=== PATIENT | male | born 1940 | race African-American/Black ===

== ENCOUNTER 2016-06-15 10:48 | Emergency (ER) | payer MEDICARE, MEDICAID ==
--- NOTE | 2016-06-15 10:53 | ER Document Report ---
Addendum entered and electronically signed by OSCAR PIERRE NP 06/15/16 11:14 : Course - Re-evaluation Re-evalutation: 06/15/16 11:14 I have consulted with the supervisory physician per [facility] Guidelines. I have greeted and performed a rapid initial assessment of this patient. A comprehensive ED assessment, evaluation of the patient, analysis of test results , and completion of the medical decision making process will be contacted by additional ED providers. - Vital Signs Vital signs: Temp Pulse Resp BP Pulse Ox 98.1 F 94 20 143/70 H 98 06/15/16 11:06 06/15/16 11:06 06/15/16 11:06 06/15/16 11:06 06/15/16 11:06 Original Note: ED Medical Screen (RME) - General Stated Complaint: BREATHING CONCERNS Time seen by provider: 11:09 Mode of Arrival: Ambulatory Information source: Patient Notes: 75-year-old diabetic, hypertensive ex smoker male with a history of coronary artery disease and stents has been nauseated for 3 days. After he vomited once this morning he developed epigastric to neck burning and hurting. Swallowing makes it worse. Bad diarrhea for. Took 1 baby aspirin this morning. He feels short winded. TRAVEL OUTSIDE OF THE [place] IN LAST 30 DAYS: No - Related Data Allergies/Adverse Reactions: No Known Allergies Allergy (Verified 06/15/16 11:11) Past Medical History - Past Medical History Cardiac Medical History: Reports: Hx Coronary Artery Disease - STENT PLACED, Hx Hypertension Denies: Hx Heart Attack Pulmonary Medical History: Denies: Hx Asthma, Hx Bronchitis, Hx Pneumonia Neurological Medical History: Reports: Hx Seizures - ALCOHOL INDUCED 40 YEARS AGO . Denies: Hx Cerebrovascular Accident GI Medical History: Reports: Hx Hiatal Hernia. Denies: Hx Hepatitis, Hx Ulcer Musculoskeltal Medical History: Reports Hx Arthritis - NECK Infectious Medical History: Denies: Hx Hepatitis Past Surgical History: Denies: Hx Open Heart Surgery, Hx Pacemaker - Immunizations Hx Diphtheria, Pertussis, Tetanus Vaccination: No Physical Exam - Vital signs Vitals: Temp Pulse Resp BP Pulse Ox 98.1 F 94 20 143/70 H 98 06/15/16 11:06 06/15/16 11:06 06/15/16 11:06 06/15/16 11:06 06/15/16 11:06 Course - Vital Signs Vital signs: Temp Pulse Resp BP Pulse Ox 98.1 F 94 20 143/70 H 98 06/15/16 11:06 06/15/16 11:06 06/15/16 11:06 06/15/16 11:06 06/15/16 11:06
[2016-06-15] MEDS ORDERED: ASPIRIN 81 MG TABLET, CHEWABLE PO ONE (11:12)
[2016-06-15] MEDS ORDERED: ONDANSETRON 4 MG TAB.RAPDIS PO ONE (11:14)
[2016-06-15 11:58] LABS: ABSOLUTE EOSINOPHILS # (AUTO) 0.5 10^3/uL (0.0-0.6); ABSOLUTE LYMPHOCYTES (AUTO) 0.8 10^3/uL (0.5-4.7); ABSOLUTE MONOCYTES (AUTO) 1.1 10^3/uL (0.1-1.4); ABSOLUTE NEUT (AUTO) 6.8 10^3/uL (1.7-8.2); BASOPHILS % (AUTO) 0.5 % (0-2); EOSINOPHILS % (AUTO) 5.1 % (0-6); HEMATOCRIT 39.9 % (37.9-51.0); HEMOGLOBIN 13.3 g/dL (13.5-17.0); LYMPHOCYTES % (AUTO) 8.3 % (13-45); MEAN CORPUSCULAR HGB CONC 33.2 g/dL (32.0-36.0); MEAN CORPUSCULAR VOLUME 90 fl (80-97); MONOCYTES % (AUTO) 11.9 % (3-13); RED BLOOD COUNT 4.43 10^6/uL (4.35-5.55); RED CELL DISTRIBUTION WIDTH 14.3 % (11.5-14.0); SEGMENTED NEUTROPHILS % (AUTO) 74.2 % (42-78); WHITE BLOOD COUNT 9.2 10^3/uL (4.0-10.5)
[2016-06-15 12:07] LABS: ALANINE AMINOTRANSFERASE 32 U/L (21-72); ALBUMIN 3.6 g/dL (3.5-5.0); ALKALINE PHOSPHATASE 59 U/L (38-126); ANION GAP 15 (5-19); ASPARTATE AMINO TRANSFERASE 16 U/L (17-59); BILIRUBIN,TOTAL 0.7 mg/dL (0.2-1.3); BLOOD UREA NITROGEN 14 mg/dL (7-20); CALCIUM 8.6 mg/dL (8.4-10.2); CARBON DIOXIDE 21 mmol/L (22-30); CHLORIDE 103 mmol/L (98-107); CREATINE KINASE 57 U/L (55-170); CREATININE RESULT 0.93 mg/dL (0.52-1.25); GLUCOSE 286 mg/dL (75-110); POTASSIUM 4.2 mmol/L (3.6-5.0); SODIUM 139.1 mmol/L (137-145); TOTAL PROTEIN 6.6 g/dL (6.3-8.2)
[2016-06-15 12:19] LABS: TROPONIN I < 0.012 ng/mL
[2016-06-15] MEDS ORDERED: LIDOCAINE 2% VISCOUS SOLN 20 ML UDCUP PO ONE (13:23)
[2016-06-15] MEDS ORDERED: MAG HYDROX/AL HYDROX/SIMETH SUSP 30 ML UDCUP PO ONE (13:23)
--- NOTE | 2016-06-15 13:30 | ER Document Report ---
ED GI/ - General Mode of Arrival: Ambulatory Information source: Patient TRAVEL OUTSIDE OF THE [place] IN LAST 30 DAYS: No - HPI Patient complains to provider of: Abdominal pain, Diarrhea Onset: This morning Timing/Duration: Sudden Quality of pain: Burning Location: Epigastric, Other - see above Associated symptoms: Other - see above <MEREDITH ST - Last Filed: 06/15/16 13:21> <GALO TANG - Last Filed: 06/15/16 16:15> <GHULAM LEAL - Last Filed: 06/15/16 19:11> - General Chief Complaint: Epigastric Pain Stated Complaint: BREATHING CONCERNS Notes: 75 year old male with history of a hiatal hernia and esophageal obstructions presents to the ED complaining of burning epigastric abdominal pain that radiates substernally which started this morning when he woke up. Patient states that he can reproduce the burning sensation when he swallows. Patient is additionally complaining of diarrhea, nausea, and belching for the past 3 days. Patient states on one occasion that he belched up sour tasting material. The patient receives primary care from [facility]. (MEREDITH ST) This 75-year-old male patient comes emergency room complaining of epigastric burning pain going up in the retrosternal region. He states he began belching quite a lot yesterday, and at some point belched up better tasting liquid. He reports his abdomen has been a little distended. He also reports he has had nausea and diarrhea for 3 days. He states there is no chest discomfort at this time unless he swallows. His past history is significant for coronary artery disease with a stent placed , taking Plavix. He is also on several nitrates. He has GERD and a hiatal hernia. He has type II diabetes taking metformin. He has hypertension and hyperlipidemia. He reports a seizure episode 40 years ago that was alcohol related. He has peripheral vascular disease, he has intermittent claudication and takes Cilostazol. He quit smoking 40 years ago but does chew tobacco. He does not drink alcohol now. On exam his abdomen is hyperresonant and appears distended. It is soft and not tender to palpate. He was given a GI cocktail drink, and reports it made the discomfort in swallowing better. Abdominal films show multiple air-fluid levels and large amount of gas in the intestines. An oral and IV contrast CT scan will be done to rule out obstruction. His EKG did not show any Q-tips changes, his CK is low and troponin is undetectable. His liver function tests are normal. His sugar is 286, otherwise the Chem-12 and CBC are normal. (GALO TANG) - Related Data Allergies/Adverse Reactions: No Known Allergies Allergy (Verified 06/15/16 11:11) Past Medical History - General Information source: Patient - Social History Smoking Status: Former Smoker Chew tobacco use (# tins/day): Yes Frequency of alcohol use: None Family History: Reviewed & Not Pertinent Patient has suicidal ideation: No Patient has homicidal ideation: No - Past Medical History Cardiac Medical History: Reports: Hx Coronary Artery Disease - STENT PLACED, Hx Hypercholesterolemia, Hx Hypertension, Hx Peripheral Vascular Disease Pulmonary Medical History: Denies: Hx Asthma, Hx Bronchitis, Hx Pneumonia Neurological Medical History: Reports: Hx Seizures - ALCOHOL INDUCED 40 YEARS AGO . Denies: Hx Cerebrovascular Accident Endocrine Medical History: Reports: Hx Diabetes Mellitus Type 2 Renal/ Medical History: Denies: Hx Peritoneal Dialysis GI Medical History: Reports: Hx Hiatal Hernia, Other - esophageal obstructions Musculoskeltal Medical History: Reports Hx Arthritis - NECK Past Surgical History: Reports: Hx Cardiac Surgery - stents x3 - Immunizations Hx Diphtheria, Pertussis, Tetanus Vaccination: No <MEREDITH ST - Last Filed: 06/15/16 13:21> Review of Systems - Review of Systems Constitutional: No symptoms reported EENT: No symptoms reported Cardiovascular: No symptoms reported Respiratory: No symptoms reported Gastrointestinal: See HPI, Abdominal pain - epigastric which radiates substernally, Diarrhea, Nausea, Other - belching Genitourinary: No symptoms reported Male Genitourinary: No symptoms reported Musculoskeletal: No symptoms reported Skin: No symptoms reported Hematologic/Lymphatic: No symptoms reported Neurological/Psychological: No symptoms reported <MEREDITH ST - Last Filed: 06/15/16 13:21> Physical Exam - Vital signs Interpretation: Normal - General General appearance: Alert In distress: None - HEENT Head: Normocephalic, Atraumatic Eyes: Normal Extraocular movements intact: Yes Pupils: PERRL - Respiratory Respiratory status: No respiratory distress Breath sounds: Normal - Cardiovascular Rhythm: Regular Heart sounds: Normal auscultation - Abdominal Inspection: No: Normal Distension: Distended - hyper-resonate - Back Back: Normal - Extremities General upper extremity: Normal inspection, Normal ROM General lower extremity: Normal inspection, Normal ROM - Neurological Neuro grossly intact: Yes - Psychological Associated symptoms: Normal affect, Normal mood - Skin Skin Temperature: Warm Skin Moisture: Dry Skin Color: Normal <MEREDITH ST - Last Filed: 06/15/16 13:21> <GALO TANG - Last Filed: 06/15/16 16:15> <GHULAM LEAL - Last Filed: 06/15/16 19:11> - Vital signs Vitals: Temp Pulse Resp BP Pulse Ox 98.1 F 94 20 143/70 H 98 06/15/16 11:06 06/15/16 11:06 06/15/16 11:06 06/15/16 11:06 06/15/16 11:06 (MEREDITH ST) (GALO TANG) (GHULAM LEAL) Course - Laboratory Result Diagrams: 06/15/16 11:46 06/15/16 11:46 <[address] - Last Filed: 06/15/16 13:21> - Laboratory Result Diagrams: 06/15/16 11:46 06/15/16 11:46 - Diagnostic Test Radiology reviewed: Image reviewed, Reports reviewed - Chest x-ray is unremarkable, flat and upright abdomen shows multiple air-fluid levels and a lot of gas. - Transfer of Care Care transferred to following provider: Dr. Leal <GALO TANG - Last Filed: 06/15/16 16:15> - Laboratory Result Diagrams: 06/15/16 11:46 06/15/16 11:46 <GHULAM LEAL - Last Filed: 06/15/16 19:11> - Re-evaluation Re-evalutation: 06/15/16 18:58 Progress: This patient was signed out to me at 5:[address] Larsen pending CT of the abdomen and pelvis. The patient reportedly has been having a lot of epigastric burning sensation with reflux and sour taste in the back of his mouth. His workup to that point had been unremarkable. The CT does not reveal any acute abnormalities. He does have cholelithiasis. There are normal LFTs and lipase. Patient has no abdominal tenderness. Vital Signs are stable. Based on Dr. King discussion, the patient was to be discharged home with follow-up with his PCP if the CT was negative. Patient does describe a burning sore throat feeling. I will give him some Magic mouthwash. He is following up with his primary doctor. I have discussed all of this with the patient and he is agreeable with the plan. (GHULAM LEAL) - Vital Signs Vital signs: Temp Pulse Resp BP Pulse Ox 98.1 F 94 13 101/75 100 06/15/16 11:06 06/15/16 11:06 06/15/16 17:15 06/15/16 16:31 06/15/16 16:31 (MERED[address]) (GALO TANG) (GHULAM LEAL) - Laboratory Laboratory results interpreted by me: 06/15/16 06/15/16 06/15/16 11:46 11:46 11:46 Hgb 13.3 L RDW 14.3 H Lymphocytes % 8.3 L Carbon Dioxide 21 L Glucose 286 H Hemoglobin A1c % 7.0 H AST 16 L (MEREDITH ST) (GALO TANG) (GHULAM LEAL) - Transfer of Care Notes: 06/15/16 16:17 Will follow up on the CT scan and make a disposition. (GALO TANG) Discharge <MEREDITH ST - Last Filed: 06/15/16 13:21> <GALO TANG - Last Filed: 06/15/16 16:15> <GHULAM LEAL - Last Filed: 06/15/16 19:11> - Discharge Clinical Impression: Reflux esophagitis Condition: Stable Disposition: HOME, SELF-CARE Instructions: Acid-Suppressing Medication ([facility]), Esophagitis ([facility]) Additional Instructions: Take medications as prescribed. Monitor your glucose carefully. Follow-up the primary doctor on Friday. Return to emergency department for fevers, chest pain , difficulty breathing, vomiting so not to keep down fluids, or any other worsening or concerning symptoms. Prescriptions: Famotidine [Pepcid 20 mg Tablet] 20 mg PO BID #28 tablet Nystatin/Dexameth/Diphen [Magic Mouthwash ([facility] Formula) Susp] 5 ml PO QID #120 ml Scribe Documentation - Scribe Written by Scribe:: Jade Mccray, 06/15/2016 13:33 acting as scribe for :: Sae <MEREDITH ST - Last Filed: 06/15/16 13:21>
[2016-06-15] MEDS ORDERED: NORMAL SALINE 1000 ML 1,000 ML IV ONE (14:44)
[2016-06-15] MEDS ORDERED: ONDANSETRON HCL INJ/PF 4 MG/2 ML SDV IV ONE (15:11)
--- NOTE | 2016-06-15 15:18 | EKG REPORT ---
SEVERITY:- ABNORMAL ECG - SINUS RHYTHM LEFT ATRIAL ABNORMALITY LEFT ANTERIOR FASCICULAR BLOCK LEFT VENTRICULAR HYPERTROPHY : Confirmed by: Sita Martino MD 15-Jun-2016 15:17:01
[2016-06-15 19:18] VITALS: BP 123/70
== END 2016-06-15 19:19 | disposition home or self-care (01) ==
LOC: ER 10:48
DX: K21.0 Gastro-esophageal reflux disease with esophagitis (principal); R10.13 Epigastric pain; R19.7 Diarrhea, unspecified; R11.0 Nausea; R14.2 Eructation; I25.10 Atherosclerotic heart disease of native coronary artery without angina pectoris; E78.00 Pure hypercholesterolemia, unspecified; I10 Essential (primary) hypertension; E11.9 Type 2 diabetes mellitus without complications; Z79.02 Long term (current) use of antithrombotics/antiplatelets; Z87.891 Personal history of nicotine dependence
CPT/HCPCS: 93005; 99285; 96374; 36415; 82553; 82550; 85025; 80053; 84484; 83036; 74020; 71010; 74177; 93010; A9270; J3490; J2405; J7030; S0119

== ENCOUNTER 2016-07-31 07:55 | Day surgery (SDC) | payer MEDICARE, MEDICAID ==
[2016-07-31] MEDS ORDERED: ONDANSETRON HCL INJ/PF 4 MG/2 ML SDV ONE (08:21)
[2016-07-31] MEDS ORDERED: DIPHENHYDRAMINE HCL 50 MG/ML VIAL ONE (08:21)
[2016-07-31] MEDS ORDERED: PROMETHAZINE HCL INJ 25 MG/1 ML VIAL ONE (08:21)
[2016-07-31] MEDS ORDERED: NALOXONE HCL INJ/PF 0.4 MG/1 ML SDV ONE (08:21)
[2016-07-31] MEDS ORDERED: FLUMAZENIL INJ 0.5 MG/5 ML VIAL IV ONE (08:22)
[2016-07-31] MEDS ORDERED: EPINEPHRINE INJ 1 MG/10 ML DISP.SYRIN ONE (08:22)
[2016-07-31] MEDS ORDERED: FENTANYL CITRATE INJ/PF 100 MCG/2 ML AMPUL ONE (08:22)
[2016-07-31] MEDS ORDERED: GLUCAGON,HUMAN RECOMB 1 MG INJ ONE (08:22)
[2016-07-31] MEDS: MIDAZOLAM 2 MG/2 ML INJ ONE ×2 (08:40→08:48)
--- NOTE | 2016-07-31 09:05 | Operative Report ---
Operative Report DATE OF SURGERY: 07/31/16 Operative Report: The risks benefits and alternatives of the procedure explained to the patient in detail and informed consent is obtained that GIF Olympus video scope was inserted into the patient's mouth and hypopharynx the esophagus is identified intubated and insufflated the scope was then advanced through the esophagus stomach and duodenum retroflexion maneuver is done the esophagus stomach and first and second portions of the duodenum examined PREOPERATIVE DIAGNOSIS: Dysphagia. Patient had been placed on aspirin and Plavix due to cardiac stent placement. Since we do not know exactly when that was placed patient was advised not to stop the anticoagulation POSTOPERATIVE DIAGNOSIS: Schatzki's ring with a hiatal hernia. 15 mm device bougie used to dilate the patient. This was passed over a guidewire OPERATION: EGD with dilation SURGEON: MARCELO COSTA ANESTHESIA: Moderate Sedation - 4 mg of Versed, 25 g of fentanyl. Conscious sedation monitoring 15 minutes. TISSUE REMOVED OR ALTERED: None. COMPLICATIONS: none ESTIMATED BLOOD LOSS: minimal, less than 10cc INTRAOPERATIVE FINDINGS: Benign gastric fundic gland polyps. Hiatal hernia. Schatzki's ring PROCEDURE: Patient tolerated the procedure well. No immediate postprocedure complications are noted. Patient is discharged in good condition. Discharge date 07/31/2016. Discharge diet: Regular. Discharge activity: Regular. 2-3 week follow-up to discuss findings. Patient is instructed to call the office or proceed to the emergency room should there be any further problems or questions.
[2016-07-31 10:06] VITALS: BP 171/60
== END 2016-07-31 10:25 | disposition home or self-care (01) ==
LOC: END 07:55
PROVIDERS: ATTEND Internal Medicine Gastroenterology
PROC: 0D758ZZ Dilation of Esophagus, Via Natural or Artificial Opening Endoscopic (ICD-10-PCS; principal; 2016-07-31 08:30)
DX: K44.9 Diaphragmatic hernia without obstruction or gangrene (principal); K22.2 Esophageal obstruction; K31.7 Polyp of stomach and duodenum; Z79.02 Long term (current) use of antithrombotics/antiplatelets; Z79.82 Long term (current) use of aspirin; Z98.61 Coronary angioplasty status
CPT/HCPCS: 43248; 82962; J2250; J3010; J0171; J1200; J1610; J2310; J2405; J2550; J3490

== ENCOUNTER 2017-07-08 14:54 | Emergency (ER) | payer MEDICARE, MEDICAID ==
[2017-07-08] MEDS ORDERED: GLUCAGON,HUMAN RECOMB 1 MG INJ IM PRN (15:25)
[2017-07-08] MEDS ORDERED: ONDANSETRON HCL INJ/PF 4 MG/2 ML SDV IM ONE (15:26)
--- NOTE | 2017-07-08 15:29 | ER Document Report ---
ED Medical Screen (RME) - General Chief Complaint: Difficulty Swallowing Stated Complaint: SOMETHING "STUCK IN THROAT" Time Seen by Provider: 07/08/17 15:16 Mode of Arrival: Ambulatory Information source: Patient Notes: Patient is a 76-year-old male presenting to the emergency department complaining of difficulties swallowing. Patient states he took 1 of his pills around 12 PM this morning and it became lodged in his throat. Patient states this has happened 3x in the past and he would have to go to [place] to have the pill dislodged. At bedside patient made 3 attempts to swallow some Sprite but is unable to do so. TRAVEL OUTSIDE OF THE [place] IN LAST 30 DAYS: No - Related Data Allergies/Adverse Reactions: No Known Allergies Allergy (Verified 07/08/17 14:55) Past Medical History - General Information source: Patient - Social History Cigarette use (# per day): No Chew tobacco use (# tins/day): Yes Frequency of alcohol use: None Drug Abuse: None Family history: Reviewed & Not Pertinent - Past Medical History Cardiac Medical History: Reports: Hx Coronary Artery Disease - STENT PLACED, Hx Hypercholesterolemia, Hx Hypertension, Hx Peripheral Vascular Disease Neurological Medical History: Reports: Hx Seizures - ALCOHOL INDUCED 40 YEARS AGO Endocrine Medical History: Reports: Hx Diabetes Mellitus Type 2 GI Medical History: Reports: Hx Hiatal Hernia Musculoskeltal Medical History: Reports Hx Arthritis - NECK Past Surgical History: Reports: Hx Cardiac Surgery - stents x3 - Immunizations Hx Diphtheria, Pertussis, Tetanus Vaccination: No Physical Exam - Vital signs Vitals: Temp Pulse Resp BP Pulse Ox 98.4 F 100 18 155/83 H 50 L 07/08/17 14:58 07/08/17 14:58 07/08/17 14:58 07/08/17 14:58 07/08/17 14:58 - General General appearance: Appears well, Alert - HEENT Head: Normocephalic, Atraumatic Eyes: Normal Conjunctiva: Normal Pupils: PERRL Pharynx: Other - Has difficulty swallowiing sprite at bedside. Course - Vital Signs Vital signs: Temp Pulse Resp BP Pulse Ox 98.4 F 100 18 155/83 H 50 L 07/08/17 14:58 07/08/17 14:58 07/08/17 14:58 07/08/17 14:58 07/08/17 14:58 Scribe Documentation - Scribe Written by Jade:: Jade May, 07/08/2017 15:30 acting as scribe for :: Yrodan
--- NOTE | 2017-07-08 16:43 | ER Document Report ---
ED General - General Chief Complaint: Difficulty Swallowing Stated Complaint: SOMETHING "STUCK IN THROAT" Time Seen by Provider: 07/08/17 15:16 Mode of Arrival: Ambulatory Notes: 76-year-old male presents with dysphagia without aphasia and inability to tolerate secretions since about noon today where he swallowed 1 of his heart pills. He felt to get stuck in the top of his chest and has since been unable to eat or drink. He was seen at triage given glucagon. He has had one previous esophageal dilation by Dr. Costa here at [place]. Denies current chest pain or difficulty breathing. TRAVEL OUTSIDE OF THE [place] IN LAST 30 DAYS: No - Related Data Allergies/Adverse Reactions: No Known Allergies Allergy (Verified 07/08/17 14:55) Past Medical History - General Information source: Patient - Social History Smoking Status: Never Smoker Cigarette use (# per day): No Chew tobacco use (# tins/day): Yes Frequency of alcohol use: None Drug Abuse: None Family History: Reviewed & Not Pertinent Patient has suicidal ideation: No Patient has homicidal ideation: No - Past Medical History Cardiac Medical History: Reports: Hx Coronary Artery Disease - STENT PLACED, Hx Hypercholesterolemia, Hx Hypertension, Hx Peripheral Vascular Disease Neurological Medical History: Reports: Hx Seizures - ALCOHOL INDUCED 40 YEARS AGO Endocrine Medical History: Reports: Hx Diabetes Mellitus Type 2 Renal/ Medical History: Denies: Hx Peritoneal Dialysis GI Medical History: Reports: Hx Hiatal Hernia Musculoskeltal Medical History: Reports Hx Arthritis - NECK Past Surgical History: Reports: Hx Cardiac Surgery - stents x3 - Immunizations Hx Diphtheria, Pertussis, Tetanus Vaccination: No Review of Systems - Review of Systems Notes: REVIEW OF SYSTEMS GEN: Denies fever, chills, weight loss ENT: Denies sore throat, nasal discharge, ear pain EYES: Denies blurry vision, eye pain, discharge CV: Denies chest pain, palpitations, edema RESP: Denies cough, shortness of breath, wheezing GI: Done aphasia or dysphasia a MSK: Denies joint pain/swelling, edema, SKIN: Denies rash, skin lesions LYMPH: Denies swollen glands/lymph nodes NEURO: Denies headache, focal weakness or numbness, dizziness PSYCH: Denies depression, suicidal or homicidal ideation PHYSICAL EXAMINATION General: No acute distress, well-nourished Head: Atraumatic, normocephalic ENT: Mouth normal, oropharynx moist, no exudates or tonsillar enlargement Eyes: Conjunctiva normal, pupils equal, lids normal Neck: No JVD, supple, no guarding CVS: Normal rate, regular rhythm, no murmurs Resp: No resp distress, equal and normal breath sounds bilaterally GI: Nondistended, soft, no tenderness to palpation, no rebound or guarding Ext: No deformities, no edema, normal range of motion in upper and lower ext Back: No CVA or midline TTP Skin: No rash, warm Lymphatic: No lymphadeopathy noted Neuro: Awake, alert. Face symmetric. GCS 15. Physical Exam - Vital signs Vitals: Temp Pulse Resp BP Pulse Ox 98.4 F 100 18 155/83 H 50 L 07/08/17 14:58 07/08/17 14:58 07/08/17 14:58 07/08/17 14:58 07/08/17 14:58 Course - Re-evaluation Re-evalutation: 07/08/17 16:42 Patient presents with feeling of having a pill stuck dysphagia odynophagia and inability to tolerate secretions. By time he comes back to bed 19 and I see him he looks much better and feels less discomfort. When I sat him up he felt increasing amounts of discomfort. He has been spitting into a bag. Gave him some water to drink. 07/08/17 16:59 Did spit up the water but is adamant about not receiving an x-ray workup for transfer for GI. He wants to go home and try to dissolve the pill on his own. He says he has had it stuck in his throat 3 days in a row and each time he drinks vodka and water and goes down. We had a lengthy conversation. Patient is competent based on my exam to refuse care. He did express values and reiterated the risks and benefits of leaving. He was encouraged to return to the ED any point if he changes his mind for transfer and consultation. He was discharged AGAINST MEDICAL ADVICE in stable condition. - Vital Signs Vital signs: Temp Pulse Resp BP Pulse Ox 98.4 F 100 18 155/83 H 50 L 07/08/17 14:58 07/08/17 14:58 07/08/17 14:58 07/08/17 14:58 07/08/17 14:58 Discharge - Discharge Clinical Impression: Impacted esophageal foreign body Qualifiers: Encounter type: initial encounter Qualified Code(s): T18.108A - Unspecified foreign body in esophagus causing other injury, initial encounter Condition: Fair Disposition: AGAINST MEDICAL ADVICE Instructions: Dysphagia ([facility]) Additional Instructions: You have elected to leave AGAINST MEDICAL ADVICE. You have verbalized to me the risks of leaving including esophageal perforation choking permanent vegetative state or coma. You are encouraged to return to the emergency room whenever you choose that we may finish testing and treating your impacted esophageal pill please stop taking the medication which keeps getting stuck in her throat. Please follow-up with Dr. Costa because as we discussed you probably need to have an endoscopy and dilation of your esophagus. Referrals: MARCELO COSTA MD [ACTIVE STAFF] - Follow up as needed
[2017-07-08 17:16] VITALS: BP 161/79
== END 2017-07-08 17:16 | disposition left against medical advice (07) ==
LOC: ER 14:54
DX: T18.128A Food in esophagus causing other injury, initial encounter (principal); R13.10 Dysphagia, unspecified; X58.XXXA Exposure to other specified factors, initial encounter; E11.9 Type 2 diabetes mellitus without complications
CPT/HCPCS: 99284; 96372; 36415; J1610; J2405

== ENCOUNTER 2017-07-28 10:54 | Day surgery (SDC) | payer MEDICARE, MEDICAID ==
[2017-07-28] MEDS ORDERED: DIPHENHYDRAMINE HCL 50 MG/ML VIAL ONE (12:14)
[2017-07-28] MEDS ORDERED: NALOXONE HCL INJ/PF 0.4 MG/1 ML SDV ONE (12:14)
[2017-07-28] MEDS ORDERED: ONDANSETRON HCL INJ/PF 4 MG/2 ML SDV ONE (12:14)
[2017-07-28] MEDS ORDERED: FENTANYL CITRATE INJ/PF 100 MCG/2 ML AMPUL ONE (12:15)
[2017-07-28] MEDS ORDERED: MIDAZOLAM 2 MG/2 ML INJ ONE (12:15)
[2017-07-28] MEDS ORDERED: FLUMAZENIL INJ 0.5 MG/5 ML VIAL ONE (12:16)
[2017-07-28] MEDS ORDERED: EPINEPHRINE INJ 1 MG/10 ML DISP.SYRIN ONE (12:16)
[2017-07-28] MEDS ORDERED: GLUCAGON,HUMAN RECOMB 1 MG INJ ONE (12:16)
[2017-07-28] MEDS: MIDAZOLAM 2 MG/2 ML INJ ONE ×2 (12:45→12:49)
--- NOTE | 2017-07-28 13:15 | Operative Report ---
Operative Report DATE OF SURGERY: 07/28/17 Operative Report: The risks benefits and alternatives of the procedure explained to the patient in detail and informed consent is obtained,A GIF Olympus video scope was inserted into the patient's mouth and hypopharynx, the esophagus is identified intubated and insufflated, the scope was then advanced through the esophagus stomach and duodenum ,retroflexion maneuver is done, the esophagus stomach and first and second portions of the duodenum examined PREOPERATIVE DIAGNOSIS: Dysphagia POSTOPERATIVE DIAGNOSIS: Slight increased resistance at the distal esophageal junction. No stricture seen. Likely might need manometry study to rule out achalasia. Patient is dilated. Gastritis status post biopsy rule out Helicobacter pylori OPERATION: EGD with dilatation. EGD with biopsy SURGEON: MARCELO COSTA ANESTHESIA: Moderate Sedation - 3 mg of Versed, 25 mcg of fentanyl. Conscious sedation monitoring time 30 minutes. TISSUE REMOVED OR ALTERED: Gastric mucosal specimen is obtained COMPLICATIONS: None. ESTIMATED BLOOD LOSS: None. INTRAOPERATIVE FINDINGS: As noted above. PROCEDURE: Patient tolerated procedure well. No immediate postprocedure complications are noted. Patient discharged in good condition. Discharge date 07/28/2017. Discharge diet: Regular. Discharge activity: Regular. 2-3 week follow-up to discuss findings. Patient is instructed to call the office or proceed to the emergency room should there be any further problems or questions. We will schedule outpatient manometry study. We will wait on biopsies.
[2017-07-28 14:11] VITALS: BP 186/85
== END 2017-07-28 14:05 | disposition home or self-care (01) ==
LOC: END 10:54
PROVIDERS: ATTEND Internal Medicine Gastroenterology
DX: K29.50 Unspecified chronic gastritis without bleeding (principal); R13.10 Dysphagia, unspecified; D64.9 Anemia, unspecified; I10 Essential (primary) hypertension; E78.5 Hyperlipidemia, unspecified; I25.10 Atherosclerotic heart disease of native coronary artery without angina pectoris; M19.90 Unspecified osteoarthritis, unspecified site; E11.319 Type 2 diabetes mellitus with unspecified diabetic retinopathy without macular edema; I73.9 Peripheral vascular disease, unspecified; Z79.4 Long term (current) use of insulin; Z79.84 Long term (current) use of oral hypoglycemic drugs; Z79.899 Other long term (current) drug therapy; Z79.82 Long term (current) use of aspirin; Z79.02 Long term (current) use of antithrombotics/antiplatelets
CPT/HCPCS: 43239; 43248; 82962; 88305 ×2; J2250; J3010; J0171; J1200; J1610; J2310; J2405; J3490

== ENCOUNTER 2018-02-04 17:12 | Emergency (ER) | payer MEDICARE, MEDICAID ==
[2018-02-04] MEDS ORDERED: METOCLOPRAMIDE HCL ORAL SOLN 10 MG/10 ML UDCUP PO ONE (18:29)
[2018-02-04] MEDS ORDERED: MAG HYDROX/AL HYDROX/SIMETH SUSP 30 ML UDCUP PO ONE (18:29)
[2018-02-04] MEDS ORDERED: LIDOCAINE 2% VISCOUS SOLN 20 ML UDCUP PO ONE (18:29)
--- NOTE | 2018-02-04 18:30 | ER Document Report ---
ED Medical Screen (RME) - General Chief Complaint: Chest Pain Stated Complaint: CHEST PRESSURE Time Seen by Provider: 02/04/18 18:28 Notes: 77 years old male presents today with epigastric pain on and off for the last few days associated with difficulty in breathing and dizziness and lightheaded. No fever chills or other constitutional symptoms. Difficult historian. On examination morbid obesity not seems to be in any major distress. Slight tenderness over the epigastrium noted. Electrocardiogram shows sinus rhythm left axis deviation, left ventricular hypertrophy by voltage, no acute ST-T wave changes. TRAVEL OUTSIDE OF THE [place] IN LAST 30 DAYS: No - Related Data Allergies/Adverse Reactions: No Known Allergies Allergy (Verified 01/26/18 14:43) Past Medical History - Social History Chew tobacco use (# tins/day): Yes Family history: Reviewed & Not Pertinent - Past Medical History Cardiac Medical History: Reports: Hx Coronary Artery Disease - STENT PLACED X3, Hx Hypercholesterolemia, Hx Hypertension, Hx Peripheral Vascular Disease Denies: Hx Heart Attack Pulmonary Medical History: Denies: Hx Asthma, Hx Bronchitis, Hx COPD, Hx Pneumonia Neurological Medical History: Reports: Hx Seizures - ALCOHOL INDUCED 40 YEARS AGO . Denies: Hx Cerebrovascular Accident Endocrine Medical History: Reports: Hx Diabetes Mellitus Type 2 Renal/ Medical History: Denies: Hx Peritoneal Dialysis GI Medical History: Reports: Hx Hiatal Hernia Musculoskeltal Medical History: Reports Hx Arthritis - NECK Past Surgical History: Reports: Hx Cardiac Surgery - stents x3 - Immunizations Hx Diphtheria, Pertussis, Tetanus Vaccination: No Influenza Administration Date for 02/2017 - 07/2017 Season: 02/16/17 Physical Exam - Vital signs Vitals: Temp Pulse Resp BP Pulse Ox 97.8 F 79 14 117/62 100 02/04/18 17:35 02/04/18 17:35 02/04/18 17:35 02/04/18 17:35 02/04/18 17:35 Course - Vital Signs Vital signs: Temp Pulse Resp BP Pulse Ox 97.8 F 79 14 117/62 100 02/04/18 17:35 02/04/18 17:35 02/04/18 17:35 02/04/18 17:35 02/04/18 17:35
--- NOTE | 2018-02-04 18:48 | RADIOLOGY REPORT (SQ) ---
EXAM DESCRIPTION: CHEST SINGLE VIEW COMPLETED DATE/TIME: 02/04/2018 6:37 pm REASON FOR STUDY: Chest pain COMPARISON: 02/08/2016 EXAM PARAMETERS: NUMBER OF VIEWS: One view. TECHNIQUE: Single frontal radiographic view of the chest acquired. RADIATION DOSE: NA LIMITATIONS: None. FINDINGS: LUNGS AND PLEURA: No opacities, masses or pneumothorax. No pleural effusion. MEDIASTINUM AND HILAR STRUCTURES: No masses. Contour normal. HEART AND VASCULAR STRUCTURES: Heart normal in size. Normal vasculature. BONES: No acute findings. HARDWARE: None in the chest. OTHER: No other significant finding. IMPRESSION: NO ACUTE RADIOGRAPHIC FINDING IN THE CHEST. TECHNICAL DOCUMENTATION: JOB ID: [id number] [employer]- All Rights Reserved Reading location - IP/workstation name: [email or web address]
--- NOTE | 2018-02-04 19:48 | ER Document Report ---
ED Cardiac - General Chief Complaint: Chest Pain Stated Complaint: CHEST PRESSURE Time Seen by Provider: 02/04/18 18:28 Notes: Patient is a 77-year-old male presenting to the emergency department complaining of chest tightness and burning sensation. Patient states the tightness and burning sensation starts in the middle of his chest and sometimes moves up into his throat and down into his epigastric region. Patient denies being short of breath or breaking into a sweat when pain started while he was sitting on the couch. Patient denies nausea, vomiting, diarrhea, fever. Patient does admit to URI symptoms. PMH: HTN, hyperlipidemia, diabetes, stents. TRAVEL OUTSIDE OF THE [place] IN LAST 30 DAYS: No - Related Data Allergies/Adverse Reactions: No Known Allergies Allergy (Verified 01/26/18 14:43) Past Medical History - General Information source: Patient, Relative - Social History Smoking Status: Former Smoker Chew tobacco use (# tins/day): Yes Lives with: Family Family History: Reviewed & Not Pertinent Patient has suicidal ideation: No Patient has homicidal ideation: No - Past Medical History Cardiac Medical History: Reports: Hx Coronary Artery Disease - STENT PLACED X3, Hx Hypercholesterolemia, Hx Hypertension, Hx Peripheral Vascular Disease Denies: Hx Heart Attack Pulmonary Medical History: Denies: Hx Asthma, Hx Bronchitis, Hx COPD, Hx Pneumonia Neurological Medical History: Reports: Hx Seizures - ALCOHOL INDUCED 40 YEARS AGO . Denies: Hx Cerebrovascular Accident Endocrine Medical History: Reports: Hx Diabetes Mellitus Type 2 Renal/ Medical History: Denies: Hx Peritoneal Dialysis GI Medical History: Reports: Hx Hiatal Hernia Musculoskeletal Medical History: Reports Hx Arthritis - NECK Past Surgical History: Reports: Hx Cardiac Surgery - stents x3 - Immunizations Hx Diphtheria, Pertussis, Tetanus Vaccination: No Hx Pneumococcal Vaccination: 02/16/17 Review of Systems - Review of Systems Constitutional: See HPI EENT: See HPI Cardiovascular: See HPI Respiratory: See HPI Gastrointestinal: See HPI Genitourinary: No symptoms reported Male Genitourinary: No symptoms reported Musculoskeletal: No symptoms reported Skin: No symptoms reported Hematologic/Lymphatic: No symptoms reported Neurological/Psychological: No symptoms reported Physical Exam - Vital signs Vitals: Temp Pulse Resp BP Pulse Ox 97.8 F 79 14 117/62 100 02/04/18 17:35 02/04/18 17:35 02/04/18 17:35 02/04/18 17:35 02/04/18 17:35 - Notes Notes: GENERAL: Alert, interacts well. No acute distress. HEAD: Normocephalic, atraumatic. EYES: Pupils equal, round, and reactive to light. Extraocular movements intact. ENT: Oral mucosa moist, tongue midline. NECK: Full range of motion. Supple. Trachea midline. LUNGS: Clear to auscultation bilaterally, no wheezes, rales, or rhonchi. No respiratory distress. HEART: Regular rate and rhythm. No murmur ABDOMEN: Soft, non-tender. Non-distended. Bowel sounds present in all 4 quadrants. EXTREMITIES: Moves all 4 extremities spontaneously. No edema, normal radial and dorsalis pedis pulses bilaterally. No cyanosis. BACK: no cervical, thoracic, lumbar midline tenderness. No saddle anesthesia, normal distal neurovascular exam. NEUROLOGICAL: Alert and oriented x3. Normal speech. . PSYCH: Normal affect, normal mood. SKIN: Warm, dry, normal turgor. No rashes or lesions noted. Course - Re-evaluation Re-evalutation: Extensive conversation with patient about heart score of 4. Recommended admission for chest pain rule out. Patient very adamant that his pain was caused by acid indigestion and wants to be discharged. Patient states he is hungry and is currently eating emmy crackers and peanut butter. Patient sitting up in the bed in no obvious distress. Patient states he no longer has any chest pain or burning feeling, was never short of breath and wants to go home. Shrink Pit Supervisor Dr. Galeas and patient states he will call him in the morning. Discussed return precautions with patient stated he would return to the emergency department should any symptoms return. Discussed case with Dr. Lorenzo who suggested having the patient signed AMA. Again discussed with the patient has heart score of 4 and my recommendation for admission patient continues to deny admission and wants to be discharged. AMA paperwork signed. Patient states he has nitroglycerin at home and verbalizes understanding of return precautions. - Vital Signs Vital signs: Temp Pulse Resp BP Pulse Ox 97.8 F 79 22 H 118/82 100 02/04/18 17:35 02/04/18 17:35 02/04/18 23:05 02/04/18 23:01 02/04/18 23:05 - Laboratory Result Diagrams: 02/04/18 19:37 02/04/18 19:37 Laboratory results interpreted by me: 02/04/18 02/04/18 19:37 19:37 RBC 3.81 L Hgb 11.7 L Hct 34.9 L Creatinine 1.86 H Est GFR ( Amer) 43 L Est GFR (Non-Af Amer) 35 L Direct Bilirubin 0.7 H ALT 19 L Discharge - Discharge Clinical Impression: Chest pain Qualifiers: Chest pain type: unspecified Qualified Code(s): R07.9 - Chest pain, unspecified Gastritis Qualifiers: Gastritis type: unspecified gastritis Chronicity: chronic Gastritis bleeding: without bleeding Qualified Code(s): K29.50 - Unspecified chronic gastritis without bleeding Condition: Serious Disposition: AGAINST MEDICAL ADVICE Instructions: Angina Episode ([facility]), Nitrates ([facility]), Reflux Disease (GERD) ([facility]) Additional Instructions: As we have discussed multiple times I am suggesting you stay in the hospital for admission. I understand that you do not want to stay and have signed the AGAINST MEDICAL ADVICE paperwork. Please return to the emergency room should you develop chest pain, shortness of breath, break out in a sweat, or have any other concerning symptoms. Also as we discussed please call your casino banker tomorrow morning for follow-up. Referrals: PASCUAL MIKE I, DO [Primary Care Provider] - Follow up as needed
[2018-02-04 19:49] LABS: ABSOLUTE BASOPHILS # (AUTO) 0.1 10^3/uL (0.0-0.2); ABSOLUTE EOSINOPHILS # (AUTO) 0.3 10^3/uL (0.0-0.6); ABSOLUTE LYMPHOCYTES (AUTO) 1.7 10^3/uL (0.5-4.7); ABSOLUTE MONOCYTES (AUTO) 1.1 10^3/uL (0.1-1.4); ABSOLUTE NEUT (AUTO) 5.2 10^3/uL (1.7-8.2); BASOPHILS % (AUTO) 0.9 % (0-2); EOSINOPHILS % (AUTO) 3.5 % (0-6); HEMATOCRIT 34.9 % (37.9-51.0); HEMOGLOBIN 11.7 g/dL (13.5-17.0); LYMPHOCYTES % (AUTO) 20.8 % (13-45); MEAN CORPUSCULAR HEMOGLOBIN 30.7 pg (27.0-33.4); MEAN CORPUSCULAR HGB CONC 33.5 g/dL (32.0-36.0); MEAN CORPUSCULAR VOLUME 92 fl (80-97); MONOCYTES % (AUTO) 12.5 % (3-13); PLATELET COUNT 283 10^3/uL (150-450); RED BLOOD COUNT 3.81 10^6/uL (4.35-5.55); RED CELL DISTRIBUTION WIDTH 13.1 % (11.5-14.0); SEGMENTED NEUTROPHILS % (AUTO) 62.3 % (42-78); TOTAL CELLS COUNTED % (AUTO) 100 %; WHITE BLOOD COUNT 8.4 10^3/uL (4.0-10.5)
[2018-02-04 20:13] LABS: ALANINE AMINOTRANSFERASE 19 U/L (21-72); ALBUMIN 4.1 g/dL (3.5-5.0); ALKALINE PHOSPHATASE 49 U/L (38-126); ANION GAP 11 (5-19); ASPARTATE AMINO TRANSFERASE 21 U/L (17-59); BILIRUBIN,DIRECT 0.7 mg/dL (0.0-0.4); BILIRUBIN,TOTAL 0.7 mg/dL (0.2-1.3); BLOOD UREA NITROGEN 20 mg/dL (7-20); CARBON DIOXIDE 26 mmol/L (22-30); CHLORIDE 107 mmol/L (98-107); CREATINE KINASE 90 U/L (55-170); GLUCOSE 75 mg/dL (75-110); LIPASE 147.7 U/L (23-300); SODIUM 143.9 mmol/L (137-145); TOTAL PROTEIN 7.6 g/dL (6.3-8.2)
[2018-02-04 21:12] LABS: CREATINE KINASE MB 2.09 ng/mL (<4.55); TROPONIN I 0.019 ng/mL
[2018-02-04] MEDS ORDERED: NORMAL SALINE 1000 ML 1,000 ML IV ONE (22:13)
--- NOTE | 2018-02-04 22:27 | EKG REPORT ---
SEVERITY:- BORDERLINE ECG - SINUS RHYTHM BORDERLINE LEFT AXIS DEVIATION BORDERLINE T WAVE ABNORMALITIES : Confirmed by: Sita Martino MD 04-Feb-2018 22:26:27
[2018-02-04 23:03] VITALS: BP 118/82
== END 2018-02-04 23:05 | disposition left against medical advice (07) ==
LOC: ER 17:12
DX: K29.50 Unspecified chronic gastritis without bleeding (principal); R07.9 Chest pain, unspecified; I10 Essential (primary) hypertension; E11.9 Type 2 diabetes mellitus without complications; Z87.891 Personal history of nicotine dependence
CPT/HCPCS: 93005; 99285; 96360; 36415; 82553; 82962; 82550; 83690; 85025; 80053; 84484; 71045; 93010; J3490; A9270

== ENCOUNTER 2018-02-12 13:03 | Day surgery (SDC) | payer MEDICARE, MEDICAID ==
[2018-02-12] MEDS: MIDAZOLAM 2 MG/2 ML INJ ONE ×2 (12:10→14:23)
[~2018-02-12 13:03] MED LIST: DIPHENHYDRAMINE HCL 50 MG/ML VIAL ONE; EPINEPHRINE INJ 1 MG/10 ML DISP.SYRIN ONE; FENTANYL CITRATE INJ/PF 100 MCG/2 ML AMPUL ONE; FLUMAZENIL INJ 0.5 MG/5 ML VIAL ONE; GLUCAGON,HUMAN RECOMB 1 MG INJ ONE; NALOXONE HCL INJ/PF 0.4 MG/1 ML SDV ONE; ONDANSETRON HCL INJ/PF 4 MG/2 ML SDV ONE
--- NOTE | 2018-02-12 15:10 | Operative Report ---
Operative Report DATE OF SURGERY: 02/12/18 Operative Report: The risks, benefits and alternatives of the procedure including the risks of bleeding, perforation requiring surgery are explained to the patient in detail and informed consent is obtained. The patient is brought back to the endoscopy suite and placed in a left, lateral decubital position. Timeout was called. Conscious sedation medications are provided. A rectal examination was done which did not reveal any masses, tears or fissures. An Olympus videoscope was inserted into the patient's rectum. The scope was then carefully advanced all the way to the cecum. The cecum was identified by the usual anatomical landmarks including the ileocecal valve as well as the appendiceal office. Photodocumentation is obtained. The scope was then sequentially pulled back via the rest segments of the colon including the ascending colon, hepatic flexure, transverse colon, splenic flexure, descending colon and finally into the rectosigmoid portions of the colon. Retroflexion maneuvers performed. The risks benefits and alternatives of the procedure explained to the patient in detail and informed consent is obtained.A GIF Olympus video scope was inserted into the patient's mouth and hypopharynx, the esophagus is identified intubated and insufflated, the scope was then advanced through the esophagus stomach and duodenum, retroflexion maneuver is done ,the esophagus stomach and first and second portions of the duodenum examined PREOPERATIVE DIAGNOSIS: Dysphagia. Colorectal cancer screening POSTOPERATIVE DIAGNOSIS: Redundant colon. Right-sided colon inflammation status post biopsy. Internal hemorrhoids. Schatzki's ring which is broken. Duodenal ulcer with clean base. Biopsies obtained to rule out for H. pylori OPERATION: Colonoscopy with biopsy. EGD with biopsy SURGEON: MARCELO COSTA ANESTHESIA: Moderate Sedation - 3 mg of Versed, 25 mcg of fentanyl. Conscious sedation monitoring time 30 minutes. TISSUE REMOVED OR ALTERED: As noted above. COMPLICATIONS: None. ESTIMATED BLOOD LOSS: None. INTRAOPERATIVE FINDINGS: As noted above. PROCEDURE: Patient tolerated the procedure well. No immediate postprocedure complications are noted. Patient discharged in good condition. Discharge date 02/12/2018. Discharge diet: Regular. Discharge activity: Regular. 2-3-week follow-up to discuss findings. Patient is instructed call the office or proceed to the emergency room should there be any further problems or questions. Wait on the pathology. Repeat EGD in 6 weeks to document healing of the ulcer. Continue his PPI
[2018-02-12 15:47] VITALS: BP 146/74
== END 2018-02-12 15:45 | disposition home or self-care (01) ==
LOC: END 13:03
PROVIDERS: ATTEND Internal Medicine Gastroenterology
DX: Z12.11 Encounter for screening for malignant neoplasm of colon (principal); K52.9 Noninfective gastroenteritis and colitis, unspecified; K64.8 Other hemorrhoids; K22.2 Esophageal obstruction; K26.9 Duodenal ulcer, unspecified as acute or chronic, without hemorrhage or perforation; D64.9 Anemia, unspecified; I10 Essential (primary) hypertension; E78.00 Pure hypercholesterolemia, unspecified; E11.319 Type 2 diabetes mellitus with unspecified diabetic retinopathy without macular edema; I73.9 Peripheral vascular disease, unspecified; I25.110 Atherosclerotic heart disease of native coronary artery with unstable angina pectoris; M19.90 Unspecified osteoarthritis, unspecified site; Z79.84 Long term (current) use of oral hypoglycemic drugs; Z79.899 Other long term (current) drug therapy; Z79.02 Long term (current) use of antithrombotics/antiplatelets; Z79.82 Long term (current) use of aspirin; Z79.4 Long term (current) use of insulin
CPT/HCPCS: 43239; 45380; 82962; 88342 ×2; 88305 ×2; J2250; J3010; J0171; J1200; J1610; J2310; J2405; J3490

== ENCOUNTER 2018-03-06 17:10 | Observation (INO) | payer MEDICARE, MEDICAID ==
[2018-03-06] MEDS ORDERED: ASPIRIN 81 MG TABLET, CHEWABLE PO ONE (17:51)
--- NOTE | 2018-03-06 17:52 | RADIOLOGY REPORT (SQ) ---
EXAM DESCRIPTION: CHEST 2 VIEWS COMPLETED DATE/TIME: 03/06/2018 5:42 pm REASON FOR STUDY: cp COMPARISON: 02/04/2018 EXAM PARAMETERS: NUMBER OF VIEWS: two views TECHNIQUE: Digital Frontal and Lateral radiographic views of the chest acquired. RADIATION DOSE: NA LIMITATIONS: none FINDINGS: LUNGS AND PLEURA: No opacities, masses or pneumothorax. No pleural effusion. MEDIASTINUM AND HILAR STRUCTURES: No masses or contour abnormalities. HEART AND VASCULAR STRUCTURES: Heart normal size. No evidence for failure. BONES: No acute findings. HARDWARE: None in the chest. OTHER: No other significant finding. IMPRESSION: NO ACUTE RADIOGRAPHIC FINDING IN THE CHEST. TECHNICAL DOCUMENTATION: JOB ID: [id number] [employer]- All Rights Reserved Reading location - IP/workstation name: [email or web address]
--- NOTE | 2018-03-06 17:52 | ER Document Report ---
ED Medical Screen (RME) - General Chief Complaint: Chest Pain > 30 Stated Complaint: CHEST PAIN Time Seen by Provider: 03/06/18 17:47 Notes: 77 years old male presents today with chest tightness, difficulty in breathing for the last few days. Denies any chest pain denies any left arm numbness tingling sensation nausea vomiting. No fever chills or other constitutional symptoms. On examination-pleasant gentleman not seems to be in any major distress. Bilaterally decreased breath sounds but no rales or wheezing. TRAVEL OUTSIDE OF THE [place] IN LAST 30 DAYS: No - Related Data Allergies/Adverse Reactions: No Known Allergies Allergy (Verified 03/06/18 17:12) Past Medical History - Social History Family history: Reviewed & Not Pertinent - Past Medical History Cardiac Medical History: Reports: Hx Coronary Artery Disease, Hx Hypercholesterolemia, Hx Hypertension - ON MEDS, Hx Peripheral Vascular Disease Denies: Hx Heart Attack Pulmonary Medical History: Denies: Hx Asthma - OCCAS SOB, NO DIAGNOSIS, Hx Bronchitis, Hx COPD, Hx Pneumonia Neurological Medical History: Denies: Hx Cerebrovascular Accident, Hx Seizures Endocrine Medical History: Reports: Hx Diabetes Mellitus Type 2 Renal/ Medical History: Denies: Hx Peritoneal Dialysis GI Medical History: Reports: Hx Hiatal Hernia Musculoskeltal Medical History: Reports Hx Arthritis - CERVICAL AND LOWER SPINE Past Surgical History: Reports: Hx Cardiac Surgery - stents x3 - Immunizations Hx Diphtheria, Pertussis, Tetanus Vaccination: Yes Influenza Administration Date for 02/2017 - 07/2017 Season: 02/16/17 Physical Exam - Vital signs Vitals: Temp Pulse Resp BP Pulse Ox 98.6 F 71 16 180/71 H 99 03/06/18 17:20 03/06/18 17:20 03/06/18 17:20 03/06/18 17:20 03/06/18 17:20 Course - Vital Signs Vital signs: Temp Pulse Resp BP Pulse Ox 98.6 F 71 16 180/71 H 99 03/06/18 17:20 03/06/18 17:20 03/06/18 17:20 03/06/18 17:20 03/06/18 17:20
[2018-03-06 19:30] LABS: ABSOLUTE BASOPHILS # (AUTO) 0.1 10^3/uL (0.0-0.2); ABSOLUTE EOSINOPHILS # (AUTO) 0.7 10^3/uL (0.0-0.6); ABSOLUTE LYMPHOCYTES (AUTO) 1.6 10^3/uL (0.5-4.7); ABSOLUTE MONOCYTES (AUTO) 0.8 10^3/uL (0.1-1.4); ABSOLUTE NEUT (AUTO) 5.6 10^3/uL (1.7-8.2); BASOPHILS % (AUTO) 0.7 % (0-2); EOSINOPHILS % (AUTO) 8.2 % (0-6); HEMATOCRIT 32.6 % (37.9-51.0); HEMOGLOBIN 10.9 g/dL (13.5-17.0); LYMPHOCYTES % (AUTO) 17.9 % (13-45); MEAN CORPUSCULAR HEMOGLOBIN 30.8 pg (27.0-33.4); MEAN CORPUSCULAR HGB CONC 33.6 g/dL (32.0-36.0); MEAN CORPUSCULAR VOLUME 92 fl (80-97); PLATELET COUNT 230 10^3/uL (150-450); RED BLOOD COUNT 3.55 10^6/uL (4.35-5.55); RED CELL DISTRIBUTION WIDTH 13.6 % (11.5-14.0); SEGMENTED NEUTROPHILS % (AUTO) 64.2 % (42-78); TOTAL CELLS COUNTED % (AUTO) 100 %; WHITE BLOOD COUNT 8.8 10^3/uL (4.0-10.5)
--- NOTE | 2018-03-06 19:31 | EKG REPORT ---
SEVERITY:- ABNORMAL ECG - SINUS RHYTHM LVH WITH SECONDARY REPOLARIZATION ABNORMALITY : Confirmed by: Domingo Sinclair MD 06-Mar-2018 19:30:15
[2018-03-06 19:51] LABS: ALANINE AMINOTRANSFERASE 20 U/L (21-72); ALBUMIN 3.9 g/dL (3.5-5.0); ALKALINE PHOSPHATASE 61 U/L (38-126); ANION GAP 14 (5-19); ASPARTATE AMINO TRANSFERASE 19 U/L (17-59); BILIRUBIN,DIRECT 0.4 mg/dL (0.0-0.4); BILIRUBIN,TOTAL 0.4 mg/dL (0.2-1.3); BLOOD UREA NITROGEN 29 mg/dL (7-20); CALCIUM 9.5 mg/dL (8.4-10.2); CARBON DIOXIDE 20 mmol/L (22-30); CHLORIDE 106 mmol/L (98-107); CREATINE KINASE 88 U/L (55-170); GLUCOSE 157 mg/dL (75-110); POTASSIUM 5.3 mmol/L (3.6-5.0); SODIUM 139.9 mmol/L (137-145); TOTAL PROTEIN 6.8 g/dL (6.3-8.2)
[2018-03-06 19:59] LABS: CREATINE KINASE MB 2.58 ng/mL (<4.55)
[2018-03-06 20:01] LABS: TROPONIN I < 0.012 ng/mL
--- NOTE | 2018-03-06 20:36 | ER Document Report ---
ED General - General Chief Complaint: Chest Pain > 30 Stated Complaint: CHEST PAIN Time Seen by Provider: 03/06/18 17:47 Notes: Patient is a 77-year-old male with a past medical history of coronary artery disease, hypertension, hyperlipidemia, who presents with approximately 1 week of exertional chest tightness and shortness of breath. The patient is somewhat a tangential historian but does relate that today he had bought several pockets of sweet potatoes. He states each time he tried to pick these buckets up and walk he would develop a heaviness or tightness in his chest with associated shortness of breath and diaphoresis. He states that when he would stop and rest the pain would go away. He states that he is concerned about the frequency with which she is getting chest tightness particularly when he exerts himself prompting him to come to the emergency department. He states within the past several months he had a stress test done for similar symptoms by his certified professional coder through [facility]. He states that at that time they showed a posterior blockage but this was not intervened upon. He denies any current pain. He has not noted that anything seems to improve the pain minutes present other than resting. He notes that the pain only comes with exertion. He currently denies any symptoms of any kind. He has been taking all medications as directed. TRAVEL OUTSIDE OF THE [place] IN LAST 30 DAYS: No - Related Data Allergies/Adverse Reactions: No Known Allergies Allergy (Verified 03/06/18 17:12) Past Medical History - General Information source: Patient - Social History Smoking Status: Never Smoker Frequency of alcohol use: Occasional Drug Abuse: None Lives with: Family Family History: Reviewed & Not Pertinent Patient has suicidal ideation: No Patient has homicidal ideation: No - Past Medical History Cardiac Medical History: Reports: Hx Coronary Artery Disease, Hx Hypercholesterolemia, Hx Hypertension - ON MEDS, Hx Peripheral Vascular Disease Denies: Hx Heart Attack Pulmonary Medical History: Denies: Hx Asthma - OCCAS SOB, NO DIAGNOSIS, Hx Bronchitis, Hx COPD, Hx Pneumonia Neurological Medical History: Denies: Hx Cerebrovascular Accident, Hx Seizures Endocrine Medical History: Reports: Hx Diabetes Mellitus Type 2 Renal/ Medical History: Denies: Hx Peritoneal Dialysis GI Medical History: Reports: Hx Hiatal Hernia Musculoskeletal Medical History: Reports Hx Arthritis - CERVICAL AND LOWER SPINE Past Surgical History: Reports: Hx Cardiac Surgery - stents x3 - Immunizations Hx Diphtheria, Pertussis, Tetanus Vaccination: Yes Hx Pneumococcal Vaccination: 02/16/17 Review of Systems - Review of Systems Notes: Constitutional: Negative for fever. HENT: Negative for sore throat. Eyes: Negative for visual changes. Cardiovascular: Positive for exertional chest pain Respiratory: Positive for exertional shortness of breath Gastrointestinal: Negative for abdominal pain, vomiting or diarrhea. Genitourinary: Negative for dysuria. Musculoskeletal: Negative for back pain. Skin: Negative for rash. Neurological: Negative for headaches, weakness or numbness. 10 point ROS negative except as marked above and in HPI. Physical Exam - Vital signs Vitals: Temp Pulse Resp BP Pulse Ox 98.6 F 71 16 180/71 H 99 03/06/18 17:20 03/06/18 17:20 03/06/18 17:20 03/06/18 17:20 03/06/18 17:20 Interpretation: Hypertensive Notes: PHYSICAL EXAMINATION: GENERAL: Well-appearing, well-nourished and in no acute distress. HEAD: Atraumatic, normocephalic. EYES: Pupils equal round and reactive to light, extraocular movements intact, sclera anicteric, conjunctiva are normal. ENT: nares patent, oropharynx clear without exudates. Moist mucous membranes. NECK: Normal range of motion, supple without lymphadenopathy LUNGS: Breath sounds clear to auscultation bilaterally and equal. No wheezes rales or rhonchi. HEART: Regular rate and rhythm without murmurs ABDOMEN: Soft, nontender, normoactive bowel sounds. No guarding, no rebound. No masses appreciated. EXTREMITIES: Normal range of motion, no pitting or edema. No cyanosis. NEUROLOGICAL: No focal neurological deficits. Moves all extremities spontaneously and on command. PSYCH: Normal mood, normal affect. SKIN: Warm, Dry, normal turgor, no rashes or lesions noted. Course - Re-evaluation Re-evalutation: 03/06/18 20:34 Patient presents with a high risk exertional chest pain with associated dyspnea. His heart score is 5 given his advanced age, his history, multiple risk factors specifically his known history of coronary artery disease. His EKG is without ST changes to suggest acute ischemia. Initial troponin is normal. However given his multitude of risk factors, his worrisome clinical history, and questionable positive stress test within the past several months will admit to the hospital for serial cardiac markers and a repeat stress test. The patient is in agreement, wishes to stay in the hospital which review of his previous emergency department visits appears to be quite atypical as he usually leaves AGAINST MEDICAL ADVICE. I have discussed this case with the hospitalist quality control checker Dr. Araiza who has accepted the patient for admission. - Vital Signs Vital signs: Temp Pulse Resp BP Pulse Ox 98.6 F 71 16 163/74 H 97 03/06/18 17:20 03/06/18 17:20 03/06/18 20:01 03/06/18 20:01 03/06/18 20:01 - Laboratory Result Diagrams: 03/06/18 19:12 03/06/18 19:12 Laboratory results interpreted by me: 03/06/18 03/06/18 19:12 19:12 RBC 3.55 L Hgb 10.9 L Hct 32.6 L Eosinophils % 8.2 H Absolute Eosinophils 0.7 H Potassium 5.3 H Carbon Dioxide 20 L BUN 29 H Creatinine 1.54 H Est GFR ( Amer) 53 L Est GFR (Non-Af Amer) 44 L Glucose 157 H ALT 20 L - Diagnostic Test Radiology reviewed: Image reviewed, Reports reviewed Radiology results interpreted by me: 03/06/18 20:35 Chest x-ray: No acute infiltrate or pneumothorax - EKG Interpretation by Me Additional EKG results interpreted by me: 03/06/18 20:35 Sinus rhythm. Rate 70. No ST elevations or depressions. QTC is 432. Discharge - Discharge Clinical Impression: Exertional chest pain, Exertional shortness of breath, Essential hypertension Condition: Fair Disposition: ADMITTED OBSERVATION Admitting Provider: Hospitalist Unit Admitted: Telemetry
[2018-03-06] MEDS ORDERED: PROMETHAZINE HCL INJ 25 MG/1 ML VIAL IV PRN (21:02)
[2018-03-06] MEDS ORDERED: PROMETHAZINE HCL 25 MG TABLET PO PRN (21:02)
[2018-03-06] MEDS ORDERED: ACETAMINOPHEN 325 MG TABLET PO PRN (21:02)
[2018-03-06] MEDS ORDERED: MAG HYDROX/AL HYDROX/SIMETH SUSP 30 ML UDCUP PO PRN (21:02)
[2018-03-06] MEDS ORDERED: NITROGLYCERIN 0.4 MG/TAB 25 TAB/BOTTLE SL PRN (21:08)
[2018-03-06] MEDS ORDERED: MORPHINE SULFATE 10 MG/ML INJ IV PRN (21:08)
[2018-03-06] MEDS ORDERED: GLUCAGON,HUMAN RECOMB 1 MG INJ IM PRN (21:36)
[2018-03-06] MEDS ORDERED: DEXTROSE 40% GEL 15 GM TUBE PO PRN ×2 (21:36)
[2018-03-06] MEDS ORDERED: METOPROLOL TARTRATE PF/INJ 5 MG/5 ML SDV IV PRN (21:36)
[2018-03-06] MEDS ORDERED: DEXTROSE 50%-WATER 25 GM/50 ML DISP.SYRIN IV PRN ×2 (21:36)
--- NOTE | 2018-03-06 21:36 | PDOC H&P ---
History of Present Illness Admission Date/PCP: 03/06/18 20:53 Patient complains of: Chest tightness History of Present Illness: FRANCISCO SMITH is a 77 year old male with medical history of coronary artery disease with 3 stents placed. [facility] Patient tells me he is having symptoms for the last 3 months and has been worsening for the last week. Every time that he is trying to stand up or walk short distances he feels chest tightness, is across his chest and radiated to his neck/throat, goes up to 10/10 intensity and is associated with shortness of breath, diaphoresis, nausea and dizziness. Today he was at his house and he brought several packs of sweet potatoes, tells me that every time he was standing up to pick 1 of these packs his symptoms were coming back in worse intensity than before. Symptoms improved at rest. Patient has nitroglycerin at home but he takes it now and then, he did not take any today. Tells me he had a stress test done last December and his software performance engineer told him that he has a little blockage but will be treated with medical management. He has decreased exertional tolerance and he could not explain me why. Currently laying in the bed he is chest pain-free. EKG shows normal sinus rhythm at 70 bpm, no acute ST elevation, ST depression or T wave inversions. One set of troponins negative. Past Medical History Cardiac Medical History: Reports: Coronary Artery Disease - Stents x3, Hyperlipidema, Hypertension - ON MEDS, Peripheral Vascular Disease Endocrine Medical History: Reports: Diabetes Mellitus Type 2 GI Medical History: Reports: Hiatal Hernia Musculoskeltal Medical History: Reports: Arthritis - CERVICAL AND LOWER SPINE Hematology: Reports: Anemia Past Surgical History Past Surgical History: Reports: Cardiac Catheterization Social History Lives with: Family Smoking Status: Former Smoker - Used to smoke 1 pack/day, quit 4 years ago Frequency of Alcohol Use: None - Used to be heavy a smoker, quit 4 years ago Hx Recreational Drug Use: No Hx Prescription Drug Abuse: No Past Social History Note: Patient walks sometimes with a cane. Lives with his . Family History Family History: Reviewed & Not Pertinent Family History: Brother with history of cardiac disease. Mother with history of diabetes mellitus and CVA. Father apparently with no medical conditions. Parental Family History Reviewed: Yes - As above Children Family History Reviewed: NA Sibling(s) Family History Reviewed.: NA Medication/Allergy Home Medications: Insulin Aspart Prot/Insuln Asp [Novolog Mix 70-30 Flexpen Syrn] 42 units SUBCUT BID 11/01/14 Aspirin 81 mg PO DAILY 07/24/17 Atorvastatin Calcium [Lipitor 10 mg Tablet] 10 mg PO DAILY 07/24/17 Clopidogrel Bisulfate [Clopidogrel] 75 mg PO DAILY 07/24/17 Ferrous Sulfate [Feosol] 320 mg PO DAILY 07/24/17 Isosorbide Mononitrate [Imdur 60 mg Tablet.er] 60 mg PO DAILY 07/24/17 Lisinopril 20 mg PO QHS 07/24/17 Metformin HCl 1,000 mg PO BID 07/24/17 Metoprolol Succinate 3 tab PO DAILY 07/24/17 Pantoprazole Sodium [Protonix] 20 mg PO QHS 07/24/17 Pregabalin [Lyrica 75 mg Capsule] 75 mg PO Q12 07/24/17 Ranolazine [Ranexa 500 mg Tab.sr] 1,000 mg PO BID 07/24/17 Allergies/Adverse Reactions: No Known Allergies Allergy (Verified 03/06/18 17:12) Review of Systems Review of Systems: As outlined above, others negative Physical Exam Vital Signs: Temp Pulse Resp BP Pulse Ox 98.6 F 71 16 163/74 H 97 03/06/18 17:20 03/06/18 17:20 03/06/18 20:01 03/06/18 20:01 03/06/18 20:01 Additional comments: General appearance: Well-developed, well-nourished, alert and cooperative, and appears to be in no acute distress Head: Normocephalic Eyes: PEERL, EOMI, vision is grossly intact. Ears: External auditory canal and tympanic membranes clear, hearing grossly intact. Nose: No nasal discharge. Throat: Oral cavity and pharynx normal. No inflammation, swelling, exudate or lesions. Neck: Neck supple, nontender without lymphadenopathy, masses or thyromegaly. Cardiac: Normal S1 and S2. No S3, S4 or murmurs. Rhythm is regular. There is no peripheral edema, cyanosis or pallor. Extremities are warm and well perfused. Capillary refill is less than 2 seconds. No carotid bruits. Lungs: Clear to auscultation and percussion without rales, rhonchi, wheezing or diminished breath sounds. Not using accessory muscles. Abdomen: Positive bowel sounds. Soft. Nondistended, nontender. No guarding or rebound. No masses. Extremities: No significant deformity or joint abnormality. No edema. Peripheral pulses intact. No varicosities. Neurological: Cranial nerves II through XII grossly intact. Move all 4 extremities Skin: Skin normal color, texture and turgor with no lesions or eruptions, warm and dry. Psychiatric: The mental examination revealed the patient was oriented to person , place, and time. The patient was able to demonstrate good judgment on recent , without hallucinations, abnormal affect or abnormal behaviors. Results Laboratory Results: 03/06/18 03/06/18 03/06/18 19:12 19:12 19:12 WBC 8.8 RBC 3.55 L Hgb 10.9 L Hct 32.6 L MCV 92 MCH 30.8 MCHC 33.6 RDW 13.6 Plt Count 230 Seg Neutrophils % 64.2 Lymphocytes % 17.9 Monocytes % 9.0 Eosinophils % 8.2 H Basophils % 0.7 Absolute Neutrophils 5.6 Absolute Lymphocytes 1.6 Absolute Monocytes 0.8 Absolute Eosinophils 0.7 H Absolute Basophils 0.1 Sodium 139.9 Potassium 5.3 H Chloride 106 Carbon Dioxide 20 L Anion Gap 14 Est GFR ( Amer) 53 L Est GFR (Non-Af Amer) 44 L Glucose 157 H Calcium 9.5 Total Bilirubin 0.4 Direct Bilirubin 0.4 AST 19 ALT 20 L Alkaline Phosphatase 61 Creatine Kinase 88 CK-MB (CK-2) 2.58 Troponin I < 0.012 Total Protein 6.8 Albumin 3.9 Impressions: Chest X-Ray 03/06/18 00:00 IMPRESSION: NO ACUTE RADIOGRAPHIC FINDING IN THE CHEST. Assessment & Plan - Diagnosis (1) Exertional chest pain Is this a current diagnosis for this admission?: Yes Plan: Patient with history of coronary artery disease and 3 stents placed, comes with exertional angina. Has a stress test last December, will need to request these records, at this point I am not going to order a stress test but I will consult cardiology for evaluation and further recommendations. Telemetry and cardiac markers x3. Nitroglycerin sublingual and IV morphine as needed for chest pain. (2) Diabetes mellitus type 2 in obese Is this a current diagnosis for this admission?: Yes Plan: Accu-Cheks q. before meals and at bedtime, insulin lispro sliding scale and hypoglycemia protocol. Continue home medications. (3) Coronary artery disease Qualifiers: Associated angina: with stable angina Is this a current diagnosis for this admission?: Yes Plan: Continue with home medications. (4) Essential hypertension Is this a current diagnosis for this admission?: Yes Plan: Blood pressure is not well controlled, unclear compliance with his home medications. Continue with home antihypertensive medications. IV Lopressor as needed. (5) CKD (chronic kidney disease) stage 3, GFR 30-59 ml/min Is this a current diagnosis for this admission?: Yes Plan: Stable - Time Time Spent: 30 to 50 Minutes
[2018-03-06] MEDS ORDERED: (PENDING PHARMACY ID) (Pantoprazole Sodium [Protonix] 20 MG) PO SCH (22:00)
[2018-03-06] MEDS ORDERED: LISINOPRIL 10 MG TABLET PO SCH (22:00)
[2018-03-06] MEDS ORDERED: (PENDING PHARMACY ID) (Lisinopril [Lisinopril] 20 MG) PO SCH (22:00)
[2018-03-06] MEDS: PREGABALIN 75 MG CAPSULE PO SCH (23:07)
[2018-03-06] MEDS: LANSOPRAZOLE 15 MG TAB.RAP.DR PO SCH (23:07)
[2018-03-06] MEDS: HEPARIN SOD (PORCINE) 5,000 UNIT/ML 1 ML SYRINGE SUBCUT SCH (23:08)
[2018-03-06] MEDS: METOPROLOL SUCCINATE 50 MG TAB.SR.24H PO SCH (23:08)
[2018-03-06] MEDS: RANOLAZINE 500 MG TAB.SR.12H PO SCH (23:08)
[2018-03-06] MEDS ORDERED: DILTIAZEM HCL 60 MG TABLET PO ONE (23:45)
[2018-03-07] MEDS ORDERED: DILTIAZEM HCL 60 MG TABLET PO SCH (02:00)
[2018-03-07] MEDS: HEPARIN SOD (PORCINE) 5,000 UNIT/ML 1 ML SYRINGE SUBCUT SCH ×3 (05:46→22:13)
[2018-03-07] MEDS ORDERED: HYDRALAZINE HCL INJ/PF 20 MG/1 ML SDV IV PRN (07:58)
[2018-03-07] MEDS ORDERED: ISOSORBIDE MONONITRATE 60 MG TAB.ER.24H PO SCH (10:00)
[2018-03-07] MEDS: RANOLAZINE 500 MG TAB.SR.12H PO SCH ×2 (10:13→22:09)
[2018-03-07] MEDS: LOSARTAN POTASSIUM 50 MG TABLET PO SCH (10:14)
[2018-03-07] MEDS: ATORVASTATIN CALCIUM 10 MG TABLET PO SCH (10:14)
[2018-03-07] MEDS: METOPROLOL SUCCINATE 50 MG TAB.SR.24H PO SCH (10:14)
[2018-03-07] MEDS: CLOPIDOGREL BISULFATE 75 MG TABLET PO SCH (10:14)
[2018-03-07] MEDS: PREGABALIN 75 MG CAPSULE PO SCH ×2 (10:14→22:09)
[2018-03-07] MEDS: FERROUS SULFATE 325 MG TABLET PO SCH (10:14)
[2018-03-07] MEDS: ASPIRIN 81 MG TABLET, CHEWABLE PO SCH (10:15)
[2018-03-07] MEDS: INSULIN LISPRO 100 UNIT/ML 3 ML VIAL SUBCUT PRN ×2 (11:48→22:12)
[2018-03-07] MEDS ORDERED: POLYETHYLENE GLYCOL 3350 POWDER 17 GM/1 PACKET PO PRN (17:58)
--- NOTE | 2018-03-07 17:58 | PDOC PROGRESS REPORT ---
Subjective Progress Note for:: 03/07/18 Subjective:: FRANCISCO SMITH is a 77 year old male who presents to the emergency room with a 3-month history of worsening chest pain. He indicates that he has been having increased chest pain in both intensity and frequency of occurrence over the last 3 months but over the last week his pain has become very intense, he rates it severe (10/10), and occurring with anything other than very minimal activity. He describes the pain as a severe tight squeezing sensation across his anterior chest and radiating up into his neck and throat. He admits that the pain is associated with dizziness and diaphoresis as well as nausea and severe dyspnea. He admits that his pain has been relieved by nitroglycerin in the past but he did not take any on the day of his admission and he admits that his pain is also been relieved by rest. He has firmly identified any type of activity other than minimal movement to transfer from his bed to a chair or to walk to the on suite bathroom has induced pain in his chest on every occasion over the last 7 days. He states he has a history of coronary artery disease and has had 3 stents placed in the past. His registered nurse midwife comes to [place] from [place]. He states his registered nurse midwife performed a stress test on him about 3 months ago and told him that he had a little bit of blockage but it was not something that they could fix and he would be treated with medical management. In the emergency room he was found to have a normal sinus rhythm with a normal EKG and normal cardiac enzymes. He was admitted for further evaluation and treatment. 03/07/18: Mr. Smith is pain-free at rest today and his cardiac enzymes and EKGs have continued to be negative for cardiac ischemia or injury. His last EKG showed a normal sinus rhythm with repolarization changes and was borderline for left ventricular hypertrophy. Patient understands that his tests are normal and we will try to make adjustments to his medication to control his angina better today. I would plan to discharge patient tomorrow for follow-up with his primary care physician and his registered nurse midwife next week. Reason For Visit: ANGINA PECTORIS Physical Exam Vital Signs: Temp Pulse Resp BP Pulse Ox 98.3 F 60 17 146/67 H 100 03/07/18 02:11 03/07/18 14:00 03/07/18 02:11 03/07/18 02:11 03/07/18 02:11 Intake & Output 03/05/18 03/06/18 03/07/18 23:59 23:59 23:59 Intake Total 812 Balance 812 Weight 83.5 kg General appearance: PRESENT: no acute distress, cooperative, well-developed, well-nourished Head exam: PRESENT: atraumatic, normocephalic Eye exam: ABSENT: conjunctival injection, periorbital swelling, scleral icterus Ear exam: PRESENT: normal external ear exam. ABSENT: bleeding, drainage Mouth exam: PRESENT: neck supple, tongue midline Neck exam: ABSENT: thyromegaly, tracheal deviation Respiratory exam: PRESENT: clear to auscultation pema, symmetrical, unlabored Cardiovascular exam: PRESENT: RRR. ABSENT: clicks, gallop, rubs Pulses: PRESENT: normal radial pulses, normal dorsalis pedis pul Vascular exam: PRESENT: normal capillary refill. ABSENT: pallor GI/Abdominal exam: PRESENT: normal bowel sounds, soft Rectal exam: PRESENT: deferred Extremities exam: ABSENT: joint swelling, pedal edema Musculoskeletal exam: PRESENT: full ROM, normal inspection Neurological exam: PRESENT: alert, oriented to person, oriented to place, oriented to time, oriented to situation, CN II-XII grossly intact. ABSENT: motor sensory deficit - [id number] Psychiatric exam: PRESENT: appropriate affect, normal mood Skin exam: ABSENT: jaundice, rash, urticaria Results Laboratory Results: 03/07/18 03:34 Magnesium 1.6 03/06/18 03/07/18 03/07/18 21:10 03:34 09:20 Troponin I < 0.012 < 0.012 < 0.012 Impressions: Chest X-Ray 03/06/18 00:00 IMPRESSION: NO ACUTE RADIOGRAPHIC FINDING IN THE CHEST. Assessment & Plan - Diagnosis (1) Exertional chest pain Is this a current diagnosis for this admission?: Yes Plan: Ischemic cardiac injury has been essentially ruled out by a negative stress test less than 3 months ago and negative cardiac enzymes and EKG results with this chest pain occurrence. Patient may well be having increased anginal episodes or crescendo angina. I will make adjustments to his medications as possible and will plan to discharge him tomorrow if he is able to tolerate activities without chest pain. (2) Coronary artery disease Qualifiers: Coronary Disease-Associated Artery/Lesion type: [place] artery Associated angina: with unspecified angina Is this a current diagnosis for this admission?: Yes Plan: Patient's angina may well be unstable and again will make adjustments in his medications and we will see how efficacious these changes have been by seeing if he can tolerate activity without chest pain tomorrow. If he can he will be discharged if he cannot I would plan to transfer him to his registered nurse midwife in [place] for further evaluation and treatment. (3) Diabetes mellitus type 2 in nonobese Is this a current diagnosis for this admission?: Yes Plan: The patient's blood sugars been reasonably well controlled throughout his hospital course so he will be continued on his current medication and diet regiment. (4) CKD (chronic kidney disease) stage 3, GFR 30-59 ml/min Is this a current diagnosis for this admission?: Yes Plan: Patient has chronic kidney disease that is stable. It is important to keep his chronic kidney disease in mind when prescribing and adjusting medication doses. - Time Time Spent with patient: 35 or more minutes Medications reviewed and adjusted accordingly: Yes
[2018-03-07] MEDS ORDERED: (PENDING PHARMACY ID) (Ranolazine [Ranexa] 1,000 MG) PO SCH (18:00)
--- NOTE | 2018-03-07 19:14 | PDOC CONSULTATION ---
Consultation-Blank Consultation: CARDIOLOGY CONSULTATION by Dr. Sita Martino on 03/07/2018. Patient seen at 8 AM on 03/07/2018. 60 minutes spent on this patient with more than 50% of time spent in direct patient care. REASON FOR CONSULTATION: Patient with history of coronary artery disease, history of success coronary stents in the past admitted with 3-month history of increasing exertional anginal chest pains. HISTORY OF PRESENT ILLNESS: Patient is a 77-year-old -[place] male with a known history of hypertension, insulin-dependent diabetes mellitus type 2, coronary artery disease, and history of 3 stents in the coronary arteries, [ details not known] states since the last 3 months has been having exertional chest pressure/pain with shortness of breath and diaphoresis. He was seen by his neon tube pumper and told him that his coronary anatomy was not amenable for any percutaneous intervention. He denies any palpitations or syncope. There is no PND orthopnea. The patient does have dyspnea on exertion with chest pain which is only a few yards now. He denies prior history of NM. There is no history of TIA or CVA. There is no leg edema, and there is no PND orthopnea. PAST MEDICAL HISTORY: The patient has history of coronary artery disease. He denies past history of NM. But states in the 1996 he had 3 stents in the coronary arteries. The details of this are awaited from records from [facility]. 3-month history of increasing chest pain/pressure with diaphoresis, and shortness of breath as mentioned in history of present illness. He denies any history of congestive heart failure. There is no PND orthopnea or leg edema. He denies history of asthma or COPD. There is no history of sleep apnea. He has a history of diabetes mellitus insulin-dependent. He also has a history of hyperlipidemia. He he denies history of TIA or CVA. There is no history of thyroid disease. There is no history of syncope or sudden . Patient denies any history of cardiac arrhythmia, or palpitations. PAST SURGICAL HISTORY: States that he had cardiac catheterizations and stent placements as mentioned earlier. No other surgeries. FAMILY HISTORY: Is positive for coronary artery disease in multiple members of his family. ALLERGIES: No known allergies. SOCIAL HISTORY: The patient does not smoke. There is no CVT H abuse. DISPOSITION: The patient is a full code. He states that his is a surrogate healthcare decision maker. REVIEW OF SYMPTOMS: Constitutional: Denies any fever chills or rigors. Complains of generalized fatigue and weakness. Head: Denies headaches or head injury. EYES: No history of amblyopia diplopia. No history of amaurosis fugax. YEARS: No history of hearing loss. No history of tinnitus. No history of recurrent ear infections. NOSE: No history of hayfever no history of nosebleeds. MOUTH: No history of altered taste sensation. No history of ulcers in the mouth. THROAT: No history of odynophagia or dysphagia. No history of recurrent sore throats. SKIN: No history of pruritus. No history of yellowish discoloration of the skin. NECK: No history of neck pain. No history of goiter. No history of lymphadenopathy. LUNGS: No history of wheezing. No history of cough or sputum production. No history of asthma or COPD. No history of pulmonary embolism. No history of hemoptysis. No history of pleuritic chest pain. No history of asthma or COPD. No history of sleep apnea. CARDIAC: History of exertional angina as mentioned earlier in spite of patient being a good medical therapy. No history of NM, but history of coronary artery disease with history of 3 stents. History of hypertension present patient claims is well controlled. No history of palpitations or syncope. No history of congestive heart failure. No history of PND orthopnea or leg edema. ABDOMEN: No history of GERD. No history of peptic ulcer disease. No history of GI bleed no history of fatty food intolerance. No history of jaundice. No history of ascites. No history of cirrhosis. No history of hepatitis. MUSCULOSKELETAL: Complains of arthritis and chronic pain. No history of collagen vascular disease. RENAL: The patient claims that he was told that there was some problem with his kidney, but he does not know much. He most likely has chronic kidney disease stage III a with a GFR now of 53 mL/min. No symptoms of enlarged prostate. No history of hematuria pyuria or dysuria. WASTE MANAGEMENT ENGINEER: No history of TIA or CVA. No history of headaches migraines or seizures. PSYCHIATRIC: No history of anxiety or depression. No history of suicidal ideation. No history of homicidal ideation. VASCULAR: No history of calf or buttock claudication. No history of DVT. HEMATOLOGICAL: No history of bleeding diathesis. No history of clotting disorders. PHYSICAL EXAMINATION: The patient is well-built and well-nourished. He is in no acute distress. He is well-groomed. At present the patient has no chest pain. 03/07/18 02:11 Temperature 98.3 F Temperature Oral Source Pulse Rate 88 Respiratory 17 Rate Blood Pressure 146/67 H [Right Upper Arm] Blood Pressure 93 Mean [Right Upper Arm] Blood Pressure Supine Position [Right Upper Arm] O2 Sat by Pulse 100 Oximetry Oxygen Delivery Room Air Method ( includes room air) HEAD: Is atraumatic normocephalic. EYES: Pupils are equal round regular reactive to light accommodation. Extraocular movements are normal there is no conjunctival pallor there is no scleral icterus. EARS: Tympanic membranes are intact. External auditory canals are clear. NOSE:: There is no deviated nasal septum. There is no inflammation of the nasal mucous membrane. Mouth: Mucous membranes of the mouth are moist. Tongue is moist. There is no ulcers in the mouth. There is no bleeding from the gums. THROAT: There is no redness of the oropharynx there is no exudates. SKIN: There is no petechia or ecchymosis. There is no skin lesions or skin rashes. NECK: Is supple. There is no JVD. Carotids are equal there is no bruit. There is no lymphadenopathy. There is no accessory muscle respiration use. Trachea central. LUNGS: Is clear to auscultation percussion, without any rhonchi rales or wheezing. There is no chest wall tenderness on palpation. HEART: S1-S2 is heard there is no S3 gallop there is no S4 gallop the systolic murmur in the left sternal border and the apex, there is no rub. ABDOMEN: Is soft. Nontender. There is no hepatosplenomegaly. Bowel sounds well heard. There is no tender areas of masses. There is no rebound guarding or rigidity. EXTREMITIES: Femorals are well felt. There is no femoral bruits. Leg pulses are well felt. There is no pedal edema. There is no DVT or cellulitis. There is no cyanosis or clubbing. Capillary refill is normal. There is no calf tenderness. WASTE MANAGEMENT ENGINEER: Patient is conscious awake, alert, and oriented x3. PSYCHIATRIC: The patient judgment and insight are intact. His affect is normal. 03/06/18 03/06/18 03/06/18 19:12 19:12 21:10 Sodium 139.9 Potassium 5.3 H Chloride 106 Carbon Dioxide 20 L Anion Gap 14 BUN 29 H Creatinine 1.54 H Est GFR ( Amer) 53 L Glucose 157 H POC Glucose Calcium 9.5 Magnesium Total Bilirubin 0.4 Direct Bilirubin 0.4 Neonat Total Bilirubin Not Reportable Neonat Direct Bilirubin Not Reportable Neonat Indirect Bili Not Reportable AST 19 ALT 20 L Alkaline Phosphatase 61 Creatine Kinase 88 CK-MB (CK-2) 2.58 Troponin I < 0.012 < 0.012 Total Protein 6.8 Albumin 3.9 03/06/18 03/07/18 03/07/18 22:45 03:34 03:34 Sodium Potassium Chloride Carbon Dioxide Anion Gap BUN Creatinine Est GFR ( Amer) Glucose POC Glucose 103 Calcium Magnesium 1.6 Total Bilirubin Direct Bilirubin Neonat Total Bilirubin Neonat Direct Bilirubin Neonat Indirect Bili AST ALT Alkaline Phosphatase Creatine Kinase CK-MB (CK-2) Troponin I < 0.012 Total Protein Albumin 03/07/18 03:41 Sodium Potassium Chloride Carbon Dioxide Anion Gap BUN Creatinine Est GFR ( Amer) Glucose POC Glucose 155 H Calcium Magnesium Total Bilirubin Direct Bilirubin Neonat Total Bilirubin Neonat Direct Bilirubin Neonat Indirect Bili AST ALT Alkaline Phosphatase Creatine Kinase CK-MB (CK-2) Troponin I Total Protein Albumin 03/06/18 17:51 Aspirin [Aspirin 81 mg Chewable Tablet] 324 mg PO NOW ONE 03/06/18 21:02 Acetaminophen [Tylenol 325 mg Tablet] 650 mg PO Q4HP PRN Mag Hydrox/Al Hydrox/Simeth [Maalox Plus Susp 30 Udcup] 30 ml PO Q6HP PRN Promethazine HCl [Phenergan 25 mg Tablet] 25 mg PO Q4HP PRN Promethazine HCl [Phenergan Inj 25 mg/1 ml Vial] 25 mg IV Q4HP PRN 03/06/18 21:08 Morphine Sulfate [Morphine 10 mg/ml Inj] 1 mg IV Q4HP PRN Nitroglycerin [Nitrostat 0.4 mg (1/150 Gr) Tabs 25/Bottle] 1 tab SL Q5MP PRN 03/06/18 21:15 Insulin Aspart Prot/Insuln Asp [Novolog Mix 70-30 Flexpen Syrn] 42 units SUBCUT .BID Metoprolol Succinate [Toprol Xl 50 mg Tab.sr] 150 mg PO DAILY 03/06/18 21:36 Dextrose 50%-Water [Dextrose Inj 50% Syringe (25 gm/50 ml)] 12.5 gm IV PRN PRN Dextrose 50%-Water [Dextrose Inj 50% Syringe (25 gm/50 ml)] 25 gm IV PRN PRN Dextrose [Glutose 40% Gel 15 gm Tube] 15 gm PO PRN PRN Dextrose [Glutose 40% Gel 15 gm Tube] 30 gm PO PRN PRN Glucagon,Human Recombinant [Glucagen Inj 1 mg Vial] 1 mg IM PRN PRN Insulin Lispro [Humalog Insulin 100 Unit/1 ml 3 ml Vial] 0 - 12 unit SUBCUT ACHSP PRN 03/06/18 22:00 Heparin Sodium,Porcine [Heparin Inj 5,000 Units/ml 1 ml Syringe] 5,000 unit SUBCUT Q8 Lansoprazole [Prevacid 15 mg Odt Tablet] 15 mg PO QHS Pregabalin [Lyrica 75 mg Capsule] 75 mg PO Q12 Ranolazine [Ranexa 500 mg Tab.sr] 1,000 mg PO Q12 03/06/18 22:21 Flu Vacc [id number](6Mos Up)/Pf [Fluarix Adlt Quad Vac 0.5 ml Syr] 0.5 ml IM .DISCHARGE PRN 03/07/18 07:58 Hydralazine HCl [Apresoline Inj/Pf 20 mg/1 ml Sdv] 20 mg IV Q4HP PRN 03/07/18 10:00 Aspirin [Aspirin 81 mg Chewable Tablet] 81 mg PO DAILY Atorvastatin Calcium [Lipitor 10 mg Tablet] 10 mg PO DAILY Clopidogrel Bisulfate [Plavix 75 mg Tablet] 75 mg PO DAILY Ferrous Sulfate [Feosol 325 mg Tablet] 325 mg PO DAILY Isosorbide Mononitrate [Imdur 60 mg Tablet.er] 60 mg PO DAILY Losartan Potassium [Cozaar 50 mg Tablet] 50 mg PO DAILY 03/07/18 17:58 Polyethylene Glycol 3350 [Miralax Powder 17 gm/Packet] 17 gm PO DAILYP PRN 03/07/18 18:00 Ranolazine [Ranexa] 1,000 mg PO BID 03/07/18 22:00 Amlodipine Besylate [Norvasc 10 mg Tablet] 10 mg PO QHS 03/08/18 10:00 Isosorbide Mononitrate [Imdur 60 mg Tablet.er] 90 mg PO DAILY EKG: Shows sinus rhythm. Left ventricular hypertrophy by voltage. Nonspecific nondiagnostic minor ST-T changes diffusely. CHEST X-ray: Shows no acute radiographic abnormalities. EKG and chest x-ray were reviewed and are interpreted by myself. IMPRESSION/RECOMMENDATION: 1. Exertional anginal chest pain: No major EKG changes at present. Also no evidence of NM this admission. Recommendation would I recommend agreeing to maximize medical treatment. Note Ranexa has been added. Would increase the patient's isosorbide mononitrate to 90 mg p.o. daily. Continue aspirin and other cardiac medication. Await records from [facility] regarding the patient's cardiac catheterization, and stent placement. In view of the patient's renal status, would be cautious with the dosing of Ranexa. If the patient continues to have chest pain, another option would be to add Brilinta. But would leave this to his outpatient neon tube pumper. 2. CORONARY ARTERY DISEASE: No history of NM. History of stents. Patient with classical exertional angina. 3. HYPERTENSION: Blood pressure seems to be reasonably controlled. Continue current antihypertensives. 4. DIABETES MELLITUS, INSULIN DEPENDENT, Type-2. CONTINUE insulin. 5. HYPERLIPIDEMIA: Continue statin. 6. CHRONIC KIDNEY DISEASE: Stage III A. Patient may benefit from outpatient nephrology consult. Medications Reviewed: And medications adjusted. Discussed with the attending physician and coordinated management plans. Medical decision making is of high complexity. Most likely if patient continues to be stable would recommend discharge home to follow-up with this primary care physician, and his neon tube pumper.
[2018-03-07] MEDS ORDERED: BIMATOPROST 0.01% OPH SOLN 2.5 ML/BOTTLE OU SCH (22:00)
[2018-03-07] MEDS ORDERED: AMLODIPINE BESYLATE 10 MG TABLET PO SCH (22:00)
[2018-03-07] MEDS: LANSOPRAZOLE 15 MG TAB.RAP.DR PO SCH (22:09)
[2018-03-08] MEDS: HEPARIN SOD (PORCINE) 5,000 UNIT/ML 1 ML SYRINGE SUBCUT SCH (05:13)
[2018-03-08] MEDS ORDERED: LANSOPRAZOLE 15 MG TAB.RAP.DR PO SCH (06:00)
[2018-03-08] MEDS: INSULIN LISPRO 100 UNIT/ML 3 ML VIAL SUBCUT PRN (08:28)
[2018-03-08] MEDS: FERROUS SULFATE 325 MG TABLET PO SCH (09:14)
[2018-03-08] MEDS: RANOLAZINE 500 MG TAB.SR.12H PO SCH (09:15)
[2018-03-08] MEDS: PREGABALIN 75 MG CAPSULE PO SCH (09:15)
[2018-03-08] MEDS: ATORVASTATIN CALCIUM 10 MG TABLET PO SCH (09:15)
[2018-03-08] MEDS: ASPIRIN 81 MG TABLET, CHEWABLE PO SCH (09:15)
[2018-03-08] MEDS: LOSARTAN POTASSIUM 50 MG TABLET PO SCH (09:15)
[2018-03-08] MEDS: METOPROLOL SUCCINATE 50 MG TAB.SR.24H PO SCH (09:15)
[2018-03-08] MEDS: CLOPIDOGREL BISULFATE 75 MG TABLET PO SCH (09:15)
[2018-03-08] MEDS ORDERED: ISOSORBIDE MONONITRATE 60 MG TAB.ER.24H PO SCH (10:00)
[2018-03-08 11:00] VITALS: BP 147/64
--- NOTE | 2018-03-08 15:40 | PDOC DISCHARGE SUMMARY ---
General - Admit/Disc Date/PCP Admission Date/Primary Care Provider: 03/06/18 20:53 Discharge Date: 03/08/18 - Discharge Diagnosis (1) Exertional chest pain Is this a current diagnosis for this admission?: Yes Summary: Ischemic cardiac injury has been essentially ruled out by a negative stress test less than 3 months ago and negative cardiac enzymes and EKG results with this chest pain occurrence. Patient may well be having increased anginal episodes or unstable crescendo angina. I will make adjustments to his medications as possible and will plan to discharge him tomorrow if he is able to tolerate activities without chest pain. Norvasc 10 mg p.o. nightly daily was added to the patient's regiment and given at bedtime on 03/07/2018. On the morning of 03/08/2018 patient was able to ambulate greater than 400 feet and be active in his room without chest pain. He was exceptionally happy because this is the first time he has been able to participate in this type of activity for the last week or so. He states he feels better than he has in quite some time and with his dramatic improvement and resolution of his unstable crescendo angina he will be discharged home today. (2) Coronary artery disease Is this a current diagnosis for this admission?: Yes Summary: Patient's angina may well be unstable and again will make adjustments in his medications and we will see how efficacious these changes have been by seeing if he can tolerate activity without chest pain tomorrow. If he can he will be discharged if he cannot I would plan to transfer him to his therapy director in [place] for further evaluation and treatment. As previously noted the patient's unstable crescendo angina resolved by addition of Norvasc 10 mg p.o. nightly to his drug regiment. This will be continued at the time of discharge and hopefully will be continued after he follows up with his therapy director and primary care provider. (3) Diabetes mellitus type 2 in nonobese Is this a current diagnosis for this admission?: Yes Summary: The patient's blood sugars been reasonably well controlled throughout his hospital course so he will be continued on his current medication and diet regiment. (4) CKD (chronic kidney disease) stage 3, GFR 30-59 ml/min Is this a current diagnosis for this admission?: Yes Summary: Patient has chronic kidney disease that is stable. It is important to keep his chronic kidney disease in mind when prescribing and adjusting medication doses. - Additional Information Resuscitation Status: Full Code Discharge Diet: As Tolerated, Cardiac, Diabetic Discharge Activity: Activity As Tolerated, Balance Activity w/Rest, Walk Frequently Prescriptions: Amlodipine Besylate [Norvasc 10 mg Tablet] 10 mg PO QHS 30 Days #30 tablet Home Medications: Aspirin [Aspirin 81 mg Chewable Tablet] 81 mg PO DAILY 03/07/18 Atorvastatin Calcium [Lipitor 10 mg Tablet] 10 mg PO DAILY 03/07/18 Bimatoprost [Lumigan] 1 drop OU QHS 03/07/18 Clopidogrel Bisulfate [Plavix 75 mg Tablet] 75 mg PO DAILY 03/07/18 Ferrous Gluconate [Iron] 240 mg PO DAILY 03/07/18 Insulin Aspart Protam & Aspart [Novolog Mix 70-30 Vial] 44 unit SQ Q12 03/07/18 Isosorbide Mononitrate [Imdur 60 mg Tablet.er] 60 mg PO DAILY 03/07/18 Lisinopril [Zestril] 20 mg PO DAILY 03/07/18 Meloxicam [Mobic] 15 mg PO DAILY 03/07/18 Metformin HCl [Glucophage] 1,000 mg PO BID 03/07/18 Metoprolol Succinate [Toprol Xl 50 mg Tab.sr] 150 mg PO DAILY 03/07/18 Nitroglycerin [Nitrostat 0.4 mg (1/150 Gr) Tabs 25/Bottle] 1 tab SL Q5MP PRN Pantoprazole Sodium [Protonix] 20 mg PO DAILY 03/07/18 Pregabalin [Lyrica 75 mg Capsule] 75 mg PO Q12 03/07/18 Ranolazine [Ranexa] 1,000 mg PO BID 03/07/18 Triamcinolone Acetonide [Aristocort 0.1% Cream] 1 applic TP BID 03/07/18 Amlodipine Besylate [Norvasc 10 mg Tablet] 10 mg PO QHS 30 Days #30 tablet 03/08 Dexlansoprazole [Dexilant 60 mg Capsule] 60 mg PO DAILY 03/08/18 History of Present Illness Patient complains of: Chest pain History of Present Illness: FRANCISCO SMITH is a 77 year old male who presents to the emergency room with a 3-month history of worsening chest pain. He indicates that he has been having increased chest pain in both intensity and frequency of occurrence over the last 3 months but over the last week his pain has become very intense, he rates it severe (10/10), and occurring with anything other than very minimal activity. He describes the pain as a severe tight squeezing sensation across his anterior chest and radiating up into his neck and throat. He admits that the pain is associated with dizziness and diaphoresis as well as nausea and severe dyspnea. He admits that his pain has been relieved by nitroglycerin in the past but he did not take any on the day of his admission and he admits that his pain is also been relieved by rest. He has firmly identified any type of activity other than minimal movement to transfer from his bed to a chair or to walk to the on suite bathroom has induced pain in his chest on every occasion over the last 7 days. He states he has a history of coronary artery disease and has had 3 stents placed in the past. His therapy director comes to [place] from [place]. He states his therapy director performed a stress test on him about 3 months ago and told him that he had a little bit of blockage but it was not something that they could fix and he would be treated with medical management. In the emergency room he was found to have a normal sinus rhythm with a normal EKG and normal cardiac enzymes. He was admitted for further evaluation and treatment. Hospital Course Hospital Course: 03/07/18: Mr. Smith is pain-free at rest today and his cardiac enzymes and EKGs have continued to be negative for cardiac ischemia or injury. His last EKG showed a normal sinus rhythm with repolarization changes and was borderline for left ventricular hypertrophy. Patient understands that his tests are normal and we will try to make adjustments to his medication to control his angina better today. I would plan to discharge patient tomorrow for follow-up with his primary care physician and his therapy director next week. 03/08/18: Mr. Smith continues to be pain-free but has been able to tolerate extensive exercise ambulating 400 feet or more on several occasions since initiation of therapy with amlodipine 10 mg nightly. He states he feels better than he has in quite some time and denies dyspnea, edema, palpitations, rapid heart rate, slow heart rate, chest tightness, chest fullness, arm pain, neck pain, jaw pain , shoulder pain, back pain, abdominal pain, nausea, vomiting, dizziness, vertigo , lightheadedness and headache. Because of his excellent response to this therapeutic change, with resolution of his unstable crescendo angina, it is felt that he should be discharged home in improved and stable condition to follow-up with his therapy director in 1-2 weeks. Physical Exam Vital Signs: Temp Pulse Resp BP Pulse Ox 97.9 F 58 L 17 148/71 H 93 03/08/18 10:18 03/08/18 10:18 03/08/18 10:18 03/08/18 10:18 03/08/18 10:18 Intake & Output 03/06/18 03/07/18 03/08/18 23:59 23:59 23:59 Intake Total 812 266 Balance 812 266 Weight 83.5 kg General appearance: PRESENT: no acute distress, cooperative Head exam: PRESENT: atraumatic, normocephalic Respiratory exam: PRESENT: clear to auscultation pema, symmetrical, unlabored Cardiovascular exam: PRESENT: RRR. ABSENT: clicks, gallop, rubs Vascular exam: PRESENT: normal capillary refill. ABSENT: pallor Extremities exam: ABSENT: joint swelling, pedal edema Musculoskeletal exam: PRESENT: ambulatory, full ROM, normal inspection Neurological exam: PRESENT: alert, oriented to person, oriented to place, oriented to time, oriented to situation Psychiatric exam: PRESENT: appropriate affect, normal mood Skin exam: ABSENT: jaundice, rash, urticaria Results Laboratory Results: 03/06/18 03/07/18 03/07/18 21:10 03:34 09:20 Troponin I < 0.012 < 0.012 < 0.012 Impressions: Chest X-Ray 03/06/18 00:00 IMPRESSION: NO ACUTE RADIOGRAPHIC FINDING IN THE CHEST. Qualifiers - * PATIENT BEING DISCHARGED WITH ANY OF THE FOLLOWING DIAGNOSIS: No Plan Discharge Plan: Discharged home in improved and stable condition. Follow-up with therapy director and primary care provider within 1-2 weeks. Time Spent: Greater than 30 Minutes
== END 2018-03-08 11:28 | disposition home or self-care (01) ==
LOC: ER 17:10 → EH 20:53 → 4N 21:56
PROVIDERS: ADMIT Internal Medicine; ATTEND Internal Medicine
DX: R07.89 Other chest pain (principal); I25.110 Atherosclerotic heart disease of native coronary artery with unstable angina pectoris; E11.22 Type 2 diabetes mellitus with diabetic chronic kidney disease; I12.9 Hypertensive chronic kidney disease with stage 1 through stage 4 chronic kidney disease, or unspecified chronic kidney disease; N18.3 Chronic kidney disease, stage 3 (moderate); R53.83 Other fatigue; R53.1 Weakness; E78.5 Hyperlipidemia, unspecified; Z79.82 Long term (current) use of aspirin; Z79.02 Long term (current) use of antithrombotics/antiplatelets; Z79.899 Other long term (current) drug therapy; Z95.5 Presence of coronary angioplasty implant and graft; Z79.4 Long term (current) use of insulin; Z82.49 Family history of ischemic heart disease and other diseases of the circulatory system; Z23 Encounter for immunization
CPT/HCPCS: 93005; 99285; 36415 ×2; 82553; 82962 ×3; 82550; 83735; 85025; 80053; 84484 ×2; 71046; 90686; 93010; G0008; A9270 ×26; J1644 ×3; 90471; G0378; J1815

== ENCOUNTER → 2018-10-06 | Outpatient (CLI) | payer MEDICARE, MEDICAID ==
[2018-10-06 14:57] LABS: ABSOLUTE EOSINOPHILS # (AUTO) 0.2 10^3/uL (0.0-0.6); ABSOLUTE LYMPHOCYTES (AUTO) 1.4 10^3/uL (0.5-4.7); ABSOLUTE MONOCYTES (AUTO) 0.5 10^3/uL (0.1-1.4); ABSOLUTE NEUT (AUTO) 3.9 10^3/uL (1.7-8.2); BASOPHILS % (AUTO) 0.8 % (0-2); EOSINOPHILS % (AUTO) 3.3 % (0-6); HEMATOCRIT 32.8 % (37.9-51.0); HEMOGLOBIN 10.8 g/dL (13.5-17.0); LYMPHOCYTES % (AUTO) 22.9 % (13-45); MEAN CORPUSCULAR HEMOGLOBIN 29.8 pg (27.0-33.4); MEAN CORPUSCULAR VOLUME 90 fl (80-97); MONOCYTES % (AUTO) 8.2 % (3-13); PLATELET COUNT 240 10^3/uL (150-450); RED BLOOD COUNT 3.64 10^6/uL (4.35-5.55); RED CELL DISTRIBUTION WIDTH 14.9 % (11.5-14.0); SEGMENTED NEUTROPHILS % (AUTO) 64.8 % (42-78); TOTAL CELLS COUNTED % (AUTO) 100 %
[2018-10-06 15:12] LABS: ANION GAP 15 (5-19); BLOOD UREA NITROGEN 17 mg/dL (7-20); CALCIUM 8.8 mg/dL (8.4-10.2); CARBON DIOXIDE 22 mmol/L (22-30); CHLORIDE 106 mmol/L (98-107); GLUCOSE 222 mg/dL (75-110); POTASSIUM 4.5 mmol/L (3.6-5.0); SODIUM 142.6 mmol/L (137-145)
== END ==
LOC: OD 14:06
PROVIDERS: ATTEND Internal Medicine Nephrology
DX: E11.9 Type 2 diabetes mellitus without complications (principal); D64.9 Anemia, unspecified; Q61.9 Cystic kidney disease, unspecified
CPT/HCPCS: 36415; 80048; 82728; 83540; 83550; 85025